=== PATIENT | female | born 1975 | race Caucasian/White ===

== ENCOUNTER → 2018-06-08 14:24 | Outpatient (CLI) | payer BC, SELFPAY ==
--- NOTE | 2018-06-08 14:29 | XR_ITS ---
XR wrist RT min 3V HISTORY ITS.REASON: RIGHT WRIST PAIN ORDERING PHYSICIAN: Shelly Geronimo PATIENT AGE: 43 years Comparison: None FINDINGS: No fracture or dislocation. No lytic or blastic change. There is normal mineralization.. The joint spaces are well-preserved. No significant degenerative/arthritic changes. No erosive changes evident.. IMPRESSION: Negative wrist
== END ==
PROVIDERS: PCP Family Medicine; Visit Provider Nurse Practitioner
DX: M25.531 Pain in right wrist (principal)
CPT/HCPCS: 73110

== ENCOUNTER → 2019-10-12 09:42 | Outpatient (CLI) | payer BC, SELFPAY ==
[2019-10-12 09:47] LABS: Adenovirus F 40/41, stool Not Detected (NotDetected); Astrovirus Not Detected (NotDetected); Campylobacter Not Detected (NotDetected); Clostridium Difficile A/B, PCR Not Detected (NotDetected); Cryptosporidium Not Detected (NotDetected); Cyclospora Cayetanesis Not Detected (NotDetected); Entamoeba histolytica Not Detected (NotDetected); Enteroaggregative E coli Not Detected (NotDetected); Enteropathogenic E coli Not Detected (NotDetected); Enterotoxigenic E coli Not Detected (NotDetected); Giardia lamblia Not Detected (NotDetected); Norovirus Not Detected (NotDetected); Plesimonas Shigalloides, PCR Not Detected (NotDetected); Rotavirus A Not Detected (NotDetected); Salmonella, PCR Not Detected (NotDetected); Sapovirus Not Detected (NotDetected); Shiga-like toxin E coli Not Detected (NotDetected); Shigella Enterovasive E coli Not Detected (NotDetected); Vibrio Cholerae Not Detected (NotDetected); Vibrio, PCR Not Detected (NotDetected); Yersinia Entercolitica, PCR Not Detected (NotDetected)
== END ==
PROVIDERS: Visit Provider Nurse Practitioner
DX: R19.7 Diarrhea, unspecified (principal)
CPT/HCPCS: 87507

== ENCOUNTER → 2019-12-08 13:19 | Outpatient (CLI) | payer BC, SELFPAY ==
[2019-12-08 14:41] LABS: Basophils # 0.1 K/mm3 (0-0.2); Basophils % 1.6 % (0.1-2.0); Eosinophils # 0.2 K/mm3 (0.0-0.4); Eosinophils % 2.6 % (0.1-12.0); Hematocrit 45.6 % (37.0-47.0); Hemoglobin 15.4 g/dL (12.2-16.2); Lymphocytes # 2.5 K/mm3 (0.7-4.5); Lymphocytes % 28.6 % (10-50); Mean Corpuscular HGB Conc 33.9 g/dL (31.8-35.4); Mean Corpuscular Hemoglobin 30.3 pg (27.0-31.2); Mean Corpuscular Volume 89.4 fl (81-99); Mean Platelet Volume 8.2 fl (7.4-10.4); Monocytes # 0.5 K/mm3 (0.1-1.0); Monocytes % 5.1 % (1.7-9.3); Neutrophils # 5.5 K/mm3 (1.8-7.8); Platelet Count 233 K/mm3 (142-424); Red Cell Distribution Width 15.4 % (11.5-17.5); White Blood Count 8.9 K/mm3 (4.8-10.8)
[2019-12-09 14:44] LABS: Covid-19 Nasal PCR Sendout Lex NOT DETECTED
== END ==
PROVIDERS: PCP Family Medicine; Visit Provider Family Medicine
DX: Z03.818 Encounter for observation for suspected exposure to other biological agents ruled out (principal)
CPT/HCPCS: 36415; 85025; U0004

== ENCOUNTER → 2020-03-13 11:28 | Outpatient (CLI) | payer BC, SELFPAY ==
[2020-03-13 13:16] LABS: Basophils # 0.1 K/mm3 (0-0.2); Eosinophils # 0.2 K/mm3 (0.0-0.4); Eosinophils % 2.3 % (0.1-12.0); Hematocrit 47.1 % (37.0-47.0); Hemoglobin 15.8 g/dL (12.2-16.2); Lymphocytes # 2.8 K/mm3 (0.7-4.5); Lymphocytes % 29.1 % (10-50); Mean Corpuscular HGB Conc 33.5 g/dL (31.8-35.4); Mean Corpuscular Hemoglobin 30.5 pg (27.0-31.2); Mean Corpuscular Volume 90.9 fl (81-99); Mean Platelet Volume 8.3 fl (7.4-10.4); Monocytes # 0.5 K/mm3 (0.1-1.0); Monocytes % 5.5 % (1.7-9.3); Neutrophils # 5.9 K/mm3 (1.8-7.8); Neutrophils % 62.2 % (37.0-80.0); Platelet Count 219 K/mm3 (142-424); Red Blood Count 5.18 M/mm3 (4.20-5.40); Red Cell Distribution Width 14.9 % (11.5-17.5); White Blood Count 9.5 K/mm3 (4.8-10.8)
[2020-03-13 13:52] LABS: Strep Scrn Group A (Rapid) Negative (Negative)
[2020-03-14 13:06] LABS: Covid-19 Nasal PCR Sendout Lex NOT DETECTED
== END ==
PROVIDERS: PCP Family Medicine; Visit Provider Nurse Practitioner
DX: Z03.818 Encounter for observation for suspected exposure to other biological agents ruled out (principal)
CPT/HCPCS: 36415; 85025; 87430; U0004

== ENCOUNTER → 2020-06-26 14:50 | Outpatient (CLI) | payer BC, SELFPAY ==
[2020-06-26 15:42] LABS: Basophils # 0.1 K/mm3 (0-0.2); Eosinophils # 0.1 K/mm3 (0.0-0.4); Eosinophils % 1.4 % (0.1-12.0); Hematocrit 46.3 % (37.0-47.0); Hemoglobin 15.4 g/dL (12.2-16.2); Lymphocytes # 2.2 K/mm3 (0.7-4.5); Lymphocytes % 26.7 % (10-50); Mean Corpuscular HGB Conc 33.2 g/dL (31.8-35.4); Mean Corpuscular Volume 90.4 fl (81-99); Mean Platelet Volume 8.1 fl (7.4-10.4); Monocytes # 0.5 K/mm3 (0.1-1.0); Monocytes % 5.9 % (1.7-9.3); Neutrophils # 5.4 K/mm3 (1.8-7.8); Neutrophils % 64.9 % (37.0-80.0); Platelet Count 194 K/mm3 (142-424); Red Blood Count 5.12 M/mm3 (4.20-5.40); Red Cell Distribution Width 15.1 % (11.5-17.5); White Blood Count 8.4 K/mm3 (4.8-10.8)
[2020-06-29 06:19] LABS: Covid-19 Nasal PCR Sendout Lex NOT DETECTED
== END ==
PROVIDERS: PCP Nurse Practitioner; Visit Provider Nurse Practitioner
DX: Z03.818 Encounter for observation for suspected exposure to other biological agents ruled out (principal)
CPT/HCPCS: 36415; 85025; 87275; 87276; U0004

== ENCOUNTER 2020-07-17 22:21 | Emergency (ER) | payer BC, SELFPAY ==
[2020-07-17 22:36] VITALS: BP 144/84; PULSE 82; RESP 15; TEMP 36.7; O2SAT 97; BMI 35.6
--- NOTE | 2020-07-17 22:36 | CT_ITS ---
PROCEDURE: CT ABDOMEN PELVIS WO CON CLINICAL INDICATION: flank pain known kdiney stone Left flank pain, pelvic pain COMPARISON: No exams were available for comparison TECHNIQUE: Axial images obtained with sagittal and coronal reformats. All CT scans at the facility use one or more dose reduction, viz: automated exposure control, ma/kV adjustment per patient size (including targeted exams where dose is matched to indication, i.e. head), or iterative reconstruction technique. FINDINGS: Fatty liver. Prior cholecystectomy. Hepatomegaly. The liver measures 27 cm cephalad caudad. Splenomegaly. The spleen measures 16 cm cephalad caudad. There are nonobstructing bilateral renal calculi. Largest stone is in the lower pole of the right kidney at 9 mm. No ureteral calculi identified. No hydronephrosis. Scattered small nodes are present in the peritoneum and retroperitoneum. No evidence of appendicitis or diverticulitis. Postsurgical changes at abdominal wall. Suture line is present in the mid pelvic region involving the small bowel. Small bowel feces sign is noted which could represent delayed transit. There is mild dilatation of the small bowel at the region of the suture line. No free air apparent. No acute bony finding. IMPRESSION: 1. Hepatosplenomegaly with fatty liver. 2. Nonobstructing bilateral renal calculi. 3. Postsurgical changes of the small bowel with mild dilatation and small bowel feces sign which may be seen with delayed transit or even partial obstruction. Please correlate with clinical findings. Dictated by: Lane Chacon MD 07/18/2020 07:43 Lane Chacon MD in [place] 07/18/2020 07:43
[2020-07-17 22:54] LABS: Microscopic, Urine URINE MICROSCOPIC (MICROSCOPIC)
[2020-07-17 22:54] LABS: Basophils # 0.1 K/mm3 (0-0.2); Basophils % 1.1 % (0.1-2.0); Eosinophils # 0.2 K/mm3 (0.0-0.4); Eosinophils % 1.8 % (0.1-12.0); Hematocrit 46.6 % (37.0-47.0); Hemoglobin 15.5 g/dL (12.2-16.2); Lymphocytes # 2.6 K/mm3 (0.7-4.5); Mean Corpuscular HGB Conc 33.3 g/dL (31.8-35.4); Mean Corpuscular Hemoglobin 29.8 pg (27.0-31.2); Mean Corpuscular Volume 89.4 fl (81-99); Mean Platelet Volume 8.5 fl (7.4-10.4); Monocytes # 0.5 K/mm3 (0.1-1.0); Monocytes % 5.9 % (1.7-9.3); Neutrophils # 5.1 K/mm3 (1.8-7.8); Neutrophils % 60.2 % (37.0-80.0); Platelet Count 202 K/mm3 (142-424); Red Blood Count 5.21 M/mm3 (4.20-5.40); White Blood Count 8.5 K/mm3 (4.8-10.8)
--- NOTE | 2020-07-17 22:54 | PC.NURSE ---
PT TO CT VIA WC
[2020-07-17 22:56] LABS: Appearance,Urine CLEAR (Clear); Bilirubin,Urine Negative (Negative); Blood, Urine TRACE-I (Negative); Color,Urine YELLOW (Yellow); Glucose,Urine (UA) 3+ (Negative); Ketones,Urine Negative (Negative); Leukocyte Esterase,Urine Negative (Negative); Nitrate,Urine Negative (Negative); Protein,Urine Negative (Negative); Specific Gravity, Urine 1.015 (1.005-1.030); Urobilinogen,Urine 0.2 EU/dl (0.2)
[2020-07-17 22:58] LABS: Chloride 104 mmol/L (98-107); Potassium 4.2 mmoL/L (3.5-5.1); Sodium 140 mmol/L (136-145)
[2020-07-17 23:01] LABS: Anion Gap 13.2 mEq/L (5-15); Blood Urea Nitrogen 11 mg/dl (7-17); Carbon Dioxide 27 mmol/L (22.0-30.0); Creatinine Clearance Estimated 156 mL/min (50-200); Estimated Glomerular Filt Rate 78 ml/min (>60); GFR (African American) 94 ML/MIN (>60)
[2020-07-17 23:02] LABS: Calcium 9.9 mg/dl (8.4-10.2); Glucose 240 mg/dl (74-100)
[2020-07-17 23:17] LABS: Bacteria,Urine 1+ /lpf
[2020-07-17 23:22] VITALS: BP 139/87; PULSE 80; RESP 15; O2SAT 96
--- NOTE | 2020-07-17 23:43 | HMH.EDGENADL ---
ED Disposition Clinical Impression: Urinary tract infection Qualifiers: Urinary tract infection type: acute cystitis Hematuria presence: without hematuria Qualified Code(s): N30.00 - Acute cystitis without hematuria Disposition: Home, Self-Care Condition on Discharge: Good Instructions: DI for Urinary Tract Infection (UTI) Prescriptions: Sulfamethoxazole/Trimethoprim [Bactrim DS tablet] 1 each PO BID 5 Days #10 tab Prescription Printed Referrals: Pablo Lebron MD [Primary Care Provider] - - Critical Care Critical Care Time: No Attestation: On 07/17/20, the high probability of a clinically significant, sudden or life threatening deterioration of the following system(s) required my full and direct attention, intervention and personal management. The time I documented below is in addition to time spent performing reported procedures but includes the following listed in this critical care notation. Medical Decision Making - Aadm Inquiry Pt receiving controlled substance: No Vital Signs: 07/17/20 22:36 07/17/20 23:22 07/18/20 00:16 Temperature 98.0 F 98 F Temperature Source Oral Oral Pulse Rate 75 Pulse Rate [Right Brachial] 82 80 Respiratory Rate 15 15 16 Blood Pressure 125/75 Blood Pressure [Right Arm] 144/84 H 139/87 Blood Pressure Mean [Right Arm] 104 104 Blood Pressure Source Automatic Cuff Blood Pressure Source [Right Arm] Automatic Cuff Automatic Cuff Blood Pressure Position Sitting Blood Pressure Position [Right Arm] Sitting Sitting 02 Sat by Pulse Oximetry 97 96 Oxygen Delivery Method Room Air Room Air Room Air - Lab Data Lab Results 07/17/20 22:45: WBC 8.5, RBC 5.21, Hgb 15.5, Hct 46.6, MCV 89.4, MCH 29.8, MCHC 33.3, RDW 16.0, Plt Count 202, MPV 8.5, Neut % (Auto) 60.2, Lymph % (Auto) 31.0, Brule % (Auto) 5.9, Eos % (Auto) 1.8, Baso % (Auto) 1.1, Neut # (Auto) 5.1, Lymph # (Auto) 2.6, Brule # (Auto) 0.5, Eos # (Auto) 0.2, Baso # (Auto) 0.1 07/17/20 22:45: Sodium 140, Potassium 4.2, Chloride 104, Carbon Dioxide 27, Anion Gap 13.2, BUN 11, Creatinine 0.80, Estimated Creat Clear 156, Estimated GFR 78, Est GFR ( Amer) 94, Glucose 240 H, Calcium 9.9 07/17/20 22:50: Urine Color Yellow, Urine Appearance Clear, Urine pH 6.0, Ur Specific Warren 1.015, Urine Protein Negative, Urine Glucose (UA) 3+, Urine Ketones Negative, Urine Blood Trace-i, Urine Nitrate Negative, Urine Bilirubin Negative, Urine Urobilinogen 0.2, Ur Leukocyte Esterase Negative, Urine WBC 3-5, Ur Squamous Epith Cells 5-10, Urine Bacteria 1+ Result diagrams: 07/17/20 22:45 07/17/20 22:45 Orders (Tests/Meds): ED MEDICATIONS Discontinued Medications Generic Name Dose Route Start Last Admin Trade Name Julitoq PRN Reason Stop Dose Admin Lactated Ringer's 1,000 mls @ 999 mls/hr 07/17/20 22:45 07/17/20 22:53 Lactated Ringer's 1000 Ml Bag IV 07/17/20 23:45 999 mls/hr .Q1H1M ANGELITO Administration Ketorolac Tromethamine 30 mg 07/17/20 22:37 07/17/20 22:54 Ketorolac 30mg/Ml Vial IV 07/17/20 22:38 30 mg ONCE ONE Administration Ondansetron HCl 4 mg 07/17/20 22:38 07/17/20 22:53 Ondansetron 4mg/2ml Vial IV 07/17/20 22:39 4 mg ONCE ONE Administration Trimethoprim/Sulfamethoxazole 1 each 07/17/20 23:40 07/18/20 00:18 Sulfa/Trimethoprim 1 Tablet PO 07/17/20 23:41 1 each ONCE ONE Administration Protocol ORDERS Category Date Time Status CT abdomen pelvis wo con Stat Cat Scan 07/17/20 22:36 Taken Medical Decision Narrative: The patient is a 45 year old female who presents with lower abdominal pain and urinary frequency. She has mild lower abdominal pain on exam. UA shows bacteria and WBC. CT abdomen without contrast shows no stone. Labs otherwise unremarkable. She was given 30 mg IV toradol and 4 mg zofran as well as 1L IVF with improvement in symptoms. Likely has UTI. Will discharge home on bactrim DS PO and give return precautions. General Adult HPI
[2020-07-18 00:16] VITALS: BP 125/75; PULSE 75; RESP 16; TEMP 36.6; O2SAT 98
== END 2020-07-18 00:18 | disposition home or self-care (01) ==
PROVIDERS: Emergency Provider Emergency Medicine; PCP Family Medicine
DX: N30.00 Acute cystitis without hematuria (principal); I25.10 Atherosclerotic heart disease of native coronary artery without angina pectoris; I25.2 Old myocardial infarction; Z79.899 Other long term (current) drug therapy
CPT/HCPCS: 74176; 80048; 81001; 85025; 96365; 96375; 99283; J2405

== ENCOUNTER 2020-07-22 13:03 | Emergency (ER) | payer BC, SELFPAY ==
[2020-07-22 13:55] VITALS: BP 114/78; PULSE 116; RESP 18; TEMP 36.8; O2SAT 98; BMI 35.4
--- NOTE | 2020-07-22 14:12 | HMH.EDUTC ---
[facility] [place] Disposition Clinical Impression: Exposure to COVID-19 virus, Viral upper respiratory illness Disposition: Home, Self-Care Condition on Discharge: Good Instructions: DI for COVID-19 (Suspected or Confirmed ), Coronavirus Disease 2019, Preventing the Spread of Coronavirus Discharge Instructions Additional Instructions: *Monitor Temp, Over the counter Motrin or Tylenol as directed/as needed Tylenol every 4 hours and Motrin every 6 hours (as long as your family doctor has told you that you can take it) for fever or pain. and straight to ER if unable to lower temp less than 101.0 after medication given *Warm salt water gargles may help to soothe the throat *Throat Lozenges *Warm fluids like tea with honey may help to soothe the throat *Sleep elevated *Humidifier/Vaporizer *Flonase 2 sprays in each nostril daily but be aware that it may take 2-3 days before you notice improvement *Bromfed may cause drowsiness. Know how it effects you (your child) before driving, caring for small child, or sending your child to school. Not other antihistamines/allergy medications while taking bromfed Your throat swab was sent for culture. Those results are typically sent to your primary care. Be sure to follow up in 2-3 days with your family doctor/primary care physician if no improvement so they can review those result and treat if necessary. If you don?t have a primary care doctor, I recommend you get one but in the mean time, you will have to return to a walk in clinic Follow up IMMEDIATELY for new or worsening symptoms or no Noticeable improvement over the next 48-72 hours. 911 for difficulty breathing or swallowing You were tested for today for COVID19 your test result should be back in the next 24-48 hours, you may call to the [facility] to see if your test results are back in the next 48 hours [phone] [facility] hours are 9am-9pm You was given a handout with instructions for Self Quarantine and Self isolation for while you wait on test results and what to do if they are positive If you are positive the Health Dept will be contacting you also Referrals: Pablo Lebron MD [Primary Care Provider] - As needed Time of Disposition: 14:39 Medical Decision Making - Adam Inquiry Pt receiving controlled substance: No Adam was queried for this patient: No Vital Signs: 07/22/20 13:55 Temperature 98.2 F Temperature Source Oral Pulse Rate [Right Brachial] 116 H Respiratory Rate 18 Blood Pressure [Right Arm] 114/78 Blood Pressure Mean [Right Arm] 90 Blood Pressure Source [Right Arm] Automatic Cuff Blood Pressure Position [Right Arm] Sitting 02 Sat by Pulse Oximetry 98 Oxygen Delivery Method Room Air Orders (Tests/Meds): ORDERS Category Date Time Status Covid-19 Nasal PCR ([facility]) Routine Lab 07/22/20 13:58 Received [facility] [place] HPI - General Stated complaint: Fever, sore throat, cough Time Seen by Provider: 07/22/20 14:12 Mode of Arrival: Ambulatory Source of Information: Patient Limitations: No Limitations Description of Symptoms (Recalled from Triage Doc. by RN): PATIENT C/O FEVER, SORE THROAT, AND EAR ACHE SINCE LAST NIGHT. SON TESTED POSITIVE FOR COVID YESTERDAY HEENT Symptoms (Recalled from RN notes): Yes Resp Symptoms (Recalled from RN notes): No Skin Symptoms (Recalled from RN notes): No MS Symptoms (Recalled from RN notes): No Functional Status (Recalled from RN notes): WNL - History of Present Illness Provider Complaint: Patient states that she has been around son that just tested positive for COVID States that she is currently on medication for bladder infection State thats she has been having sore throat, body aches and chills and today is her last dose of antibiotic and she wanted to get her urine rechecked and tested for COVID - Related Data Home Medications Medication Instructions Recorded Confirmed Aspirin [Aspirin 81mg chewable 81 mg PO DAILY 10/24/17 10/24/17 tab] Atorvastatin Calcium [Lipitor 20mg
[2020-07-22 14:46] VITALS: BP 114/78; PULSE 116; RESP 18; TEMP 36.8; O2SAT 98
[2020-07-22 20:17] LABS: Apearance,Urine Clear (Clear); Color,Urine Amber (Yellow); Glucose,Urine (UA) >=1000 (Negative); Ketones,Urine 15 (Negative); Protein,Urine Negative (Negative); Specific Gravity, Urine 1.015 (1.005-1.030)
[2020-07-22 20:18] LABS: Bilirubin,Urine 1+ (Negative); Blood, Urine Negative (Negative); UTC Leukocyte Esterase,Urine Negative (Negative); UTC Nitrate,Urine Negative (Negative); Urobilinogen,Urine 4 EU/dl (0.2)
== END 2020-07-22 14:50 | disposition home or self-care (01) ==
PROVIDERS: Emergency Provider Nurse Practitioner; PCP Family Medicine
DX: Z20.822 Contact with and (suspected) exposure to COVID-19 (principal); J06.9 Acute upper respiratory infection, unspecified; I25.10 Atherosclerotic heart disease of native coronary artery without angina pectoris; E11.9 Type 2 diabetes mellitus without complications; I25.2 Old myocardial infarction; Z79.899 Other long term (current) drug therapy
CPT/HCPCS: 81003; 99202; G0463; U0003

== ENCOUNTER 2020-11-11 15:43 | Emergency (ER) | payer BC, SELFPAY ==
[2020-11-11 15:50] VITALS: BP 138/89; PULSE 93; RESP 16; TEMP 36.6; O2SAT 98; BMI 34.8
--- NOTE | 2020-11-11 16:48 | HMH.EDUTC ---
[facility] [place] Clinical Impression: Otitis media Qualifiers: Otitis media type: unspecified Laterality: left Qualified Code(s): H66.92 - Otitis media, unspecified, left ear Disposition: Home, Self-Care Condition on Discharge: Good Instructions: Middle Ear Infection, Meclizine, Amoxicillin Additional Instructions: *Monitor Temp, Over the counter Motrin or Tylenol as directed/as needed Tylenol every 4 hours and Motrin every 6 hours (as long as your family doctor has told you that you can take it) for fever or pain. and straight to ER if unable to lower temp less than 101.0 after medication given *Take medications as prescribed *Sleep elevated *Humidifier/Vaporizer *Flonase as prescribed Follow up IMMEDIATELY for new or worsening symptoms or no Noticeable improvement over the next 48-72 hours. 911 for difficulty breathing or swallowing Prescriptions: Meclizine HCl [Antivert 12.5mg tablet] 12.5 mg PO Q8HP PRN #6 tab PRN Reason: Dizziness Transmission Status: Received by [id number] Amoxicillin [Amoxicillin 875MG Tab] 875 mg PO Q12H #20 tab Transmission Status: Received by [id number] Referrals: Pablo Lebron MD [Primary Care Provider] - As needed Time of Disposition: 17:08 Medical Decision Making - Adam Inquiry Pt receiving controlled substance: No Adam was queried for this patient: No Vital Signs: 11/11/20 15:50 11/11/20 17:03 Temperature 97.8 F 97.8 F Temperature Source Oral Pulse Rate 93 H Pulse Rate [Right Brachial] 93 H Respiratory Rate 16 16 Blood Pressure 138/89 Blood Pressure [Right Arm] 138/89 Blood Pressure Mean [Right Arm] 105 Blood Pressure Source [Right Arm] Automatic Cuff Blood Pressure Position [Right Arm] Sitting 02 Sat by Pulse Oximetry 98 Oxygen Delivery Method Room Air Medical Decision Narrative: Patient educated on medication [facility] [place] HPI - General Stated complaint: possible sinus and ear infection Time Seen by Provider: 11/11/20 16:54 Mode of Arrival: Ambulatory Source of Information: Patient Limitations: No Limitations Description of Symptoms (Recalled from Triage Doc. by RN): PATIENT C/O DIZZINESS SINCE YESTERDAY. SHE STATES SHE BELIEVES THAT IT IS EITHER A SINUS OR EAR INFECTION HEENT Symptoms (Recalled from RN notes): Yes Resp Symptoms (Recalled from RN notes): No Skin Symptoms (Recalled from RN notes): No MS Symptoms (Recalled from RN notes): No Functional Status (Recalled from RN notes): WNL - History of Present Illness Provider Complaint: Patient states that she has been having pain in her left ear for several days and noticed that yesterday she would feel a little dizzy when she would make sudden movements States that today she was still feeling a little dizzy and still having pain and pressure in her ears and sinus area so she came in to get checked - Related Data Home Medications Medication Instructions Recorded Confirmed Aspirin [Aspirin 81mg chewable 81 mg PO DAILY 10/24/17 10/24/17 tab] Atorvastatin Calcium [Lipitor 20mg 0 mg PO DAILY 10/24/17 10/24/17 Tablet] Escitalopram Oxalate 10 mg PO DAILY 10/24/17 10/24/17 Furosemide [Lasix 40mg tab] 40 mg PO DAILY 10/24/17 10/24/17 Gabapentin [Neurontin 600mg 600 mg PO BID 10/24/17 10/24/17 tablet] LORazepam [Ativan 1mg tablet] 0 mg PO NEEDED PRN 10/24/17 10/24/17 Levothyroxine Sodium 200 mcg PO DAILY 10/24/17 10/24/17 [Levothyroxine 200mcg (0.2mg) Tab] Multivitamin [Multi-Day Vitamins] 1 each PO DAILY 10/24/17 10/24/17 Nitroglycerin 0.4 mg SL NEEDED PRN 10/24/17 10/24/17 Vit D3/Folic Acid/B2/B6/B12 1 each PO DAILY 10/24/17 10/24/17 [Folgard Tablet] Vit E/B1/B6/FA/B12/Ala/Coq10 1 each PO DAILY 10/24/17 10/24/17 [Fibrik Capsule] carvediloL [Coreg 6.25mg 6.25 mg PO DAILY 10/24/17 10/24/17 Tablet] cetirizine 10 mg capsule 10 mg PO DAILY 12/15/18 empagliflozin 10 mg tablet 10 mg PO DAILY 12/15/18 fluticasone propionate
[2020-11-11 17:03] VITALS: BP 138/89; PULSE 93; RESP 16; TEMP 36.6; O2SAT 98
== END 2020-11-11 17:06 | disposition home or self-care (01) ==
PROVIDERS: Emergency Provider Nurse Practitioner; PCP Family Medicine
DX: H66.92 Otitis media, unspecified, left ear (principal); I25.10 Atherosclerotic heart disease of native coronary artery without angina pectoris; E11.9 Type 2 diabetes mellitus without complications; I25.2 Old myocardial infarction; Z79.899 Other long term (current) drug therapy
CPT/HCPCS: 99202; G0463

== ENCOUNTER → 2021-04-23 15:55 | Outpatient (CLI) | payer BC, SELFPAY ==
[2021-04-23 16:57] LABS: Basophils # 0.1 K/mm3 (0-0.2); Basophils % 1.3 % (0.1-2.0); Eosinophils # 0.2 K/mm3 (0.0-0.4); Eosinophils % 2.3 % (0.1-12.0); Hematocrit 44.5 % (37.0-47.0); Hemoglobin 14.9 g/dL (12.2-16.2); Lymphocytes # 2.6 K/mm3 (0.7-4.5); Lymphocytes % 28.7 % (10-50); Mean Corpuscular HGB Conc 33.5 g/dL (31.8-35.4); Mean Corpuscular Hemoglobin 29.8 pg (27.0-31.2); Mean Corpuscular Volume 89.2 fl (81-99); Mean Platelet Volume 8.4 fl (7.4-10.4); Monocytes # 0.5 K/mm3 (0.1-1.0); Monocytes % 5.7 % (1.7-9.3); Neutrophils # 5.5 K/mm3 (1.8-7.8); Platelet Count 217 K/mm3 (142-424); Red Blood Count 4.99 M/mm3 (4.20-5.40); Red Cell Distribution Width 15.6 % (11.5-17.5); White Blood Count 8.9 K/mm3 (4.8-10.8)
[2021-04-23 19:02] LABS: Strep Scrn Group A (Rapid) Negative (Negative)
== END ==
PROVIDERS: PCP Family Medicine; Visit Provider Nurse Practitioner
DX: Z20.822 Contact with and (suspected) exposure to COVID-19 (principal)
CPT/HCPCS: 36415; 85025; 87430; C9803; U0003; U0005

== ENCOUNTER → 2021-04-26 13:11 | Outpatient (CLI) | payer BC, SELFPAY ==
[2021-04-26 14:17] LABS: Adenovirus,PCR Not Detected (NotDetected); Bordetella Pertussis Not Detected (NotDetected); Chlamydophila Pneumoniae, PCR Not Detected (NotDetected); Coronavirus 19, PCR Not Detected (NotDetected); Coronavirus 229E Not Detected (NotDetected); Coronavirus NL63 Not Detected (NotDetected); Coronavirus OC43 Not Detected (NotDetected); Coronovirus HKU1,PCR Not Detected (NotDetected); Human Metapneumovirus Not Detected (NotDetected); Influenza A, PCR Not Detected (NotDetected); Influenza AH1, 2009 Not Detected (NotDetected); Influenza AH1, PCR Not Detected (NotDetected); Influenza AH3,PCR Not Detected (NotDetected); Influenza B, PCR Not Detected (NotDetected); Mycoplasma Pneumoniae, PCR Not Detected (NotDetected); Parainfluenza 1, PCR Not Detected (NotDetected); Parainfluenza 2, PCR Not Detected (NotDetected); Parainfluenza 3, PCR Not Detected (NotDetected); Parainfluenza 4, PCR Not Detected (NotDetected); Respiratory Syncytial Virus Not Detected (NotDetected); Rhinovirus/Enterovirus Not Detected (NotDetected)
[2021-04-26 14:39] LABS: Basophils # 0.1 K/mm3 (0-0.2); Basophils % 0.9 % (0.1-2.0); Eosinophils # 0.2 K/mm3 (0.0-0.4); Eosinophils % 1.8 % (0.1-12.0); Hematocrit 47.6 % (37.0-47.0); Hemoglobin 15.6 g/dL (12.2-16.2); Lymphocytes # 2.5 K/mm3 (0.7-4.5); Lymphocytes % 27.3 % (10-50); Mean Corpuscular HGB Conc 32.8 g/dL (31.8-35.4); Mean Corpuscular Hemoglobin 30.1 pg (27.0-31.2); Mean Corpuscular Volume 91.8 fl (81-99); Mean Platelet Volume 8.5 fl (7.4-10.4); Monocytes # 0.5 K/mm3 (0.1-1.0); Monocytes % 5.7 % (1.7-9.3); Neutrophils # 5.8 K/mm3 (1.8-7.8); Neutrophils % 64.3 % (37.0-80.0); Platelet Count 226 K/mm3 (142-424); Red Blood Count 5.18 M/mm3 (4.20-5.40); Red Cell Distribution Width 15.7 % (11.5-17.5); White Blood Count 9.1 K/mm3 (4.8-10.8)
== END ==
PROVIDERS: PCP Nurse Practitioner; Visit Provider Nurse Practitioner
DX: Z20.822 Contact with and (suspected) exposure to COVID-19 (principal)
CPT/HCPCS: 36415; 85025; 87581; 87632; 87798; C9803; U0003; U0005

== ENCOUNTER → 2021-10-31 14:40 | Outpatient (CLI) | payer BC, SELFPAY ==
[2021-10-31 14:45] LABS: Adenovirus F 40/41, stool Not Detected (NotDetected); Astrovirus Not Detected (NotDetected); Campylobacter Not Detected (NotDetected); Clostridium Difficile A/B, PCR Not Detected (NotDetected); Cryptosporidium Not Detected (NotDetected); Cyclospora Cayetanesis Not Detected (NotDetected); Entamoeba histolytica Not Detected (NotDetected); Enteroaggregative E coli Not Detected (NotDetected); Enteropathogenic E coli Not Detected (NotDetected); Enterotoxigenic E coli Not Detected (NotDetected); Giardia lamblia Not Detected (NotDetected); Norovirus Not Detected (NotDetected); Plesimonas Shigalloides, PCR Not Detected (NotDetected); Salmonella, PCR Not Detected (NotDetected); Sapovirus Not Detected (NotDetected); Shiga-like toxin E coli Not Detected (NotDetected); Shigella Enterovasive E coli Not Detected (NotDetected); Vibrio Cholerae Not Detected (NotDetected); Vibrio, PCR Not Detected (NotDetected); Yersinia Entercolitica, PCR Not Detected (NotDetected)
[2021-11-01 01:27] LABS: Rotavirus A Detected (NotDetected)
== END ==
PROVIDERS: Visit Provider Family Medicine
DX: R19.7 Diarrhea, unspecified (principal); A08.0 Rotaviral enteritis
CPT/HCPCS: 87507

== ENCOUNTER 2021-12-13 19:12 | Emergency (ER) | payer BC, SELFPAY ==
[2021-12-13 19:20] VITALS: BP 148/95; PULSE 96; RESP 18; TEMP 36.6; O2SAT 98; BMI 32.5
--- NOTE | 2021-12-13 20:12 | HMH.EDUTC ---
[facility] [place] Disposition Clinical Impression: Otitis media Qualifiers: Otitis media type: unspecified Laterality: bilateral Qualified Code(s): H66.93 - Otitis media, unspecified, bilateral Disposition: Home, Self-Care Condition on Discharge: Good Instructions: Middle Ear Infection, Amoxicillin Additional Instructions: *Monitor Temp, Over the counter Motrin or Tylenol as directed/as needed Tylenol every 4 hours and Motrin every 6 hours (as long as your family doctor has told you that you can take it) for fever or pain. and straight to ER if unable to lower temp less than 101.0 after medication given *Warm salt water gargles may help to soothe the throat *Throat Lozenges *Warm fluids like tea with honey may help to soothe the throat *Sleep elevated *Humidifier/Vaporizer Take medication as prescribed Follow up IMMEDIATELY for new or worsening symptoms or no Noticeable improvement over the next 48-72 hours. 911 for difficulty breathing or swallowing Prescriptions: Amoxicillin [Amoxicillin 500mg Cap] 500 mg PO TID #30 cap Transmission Status: [id number] Referrals: Shelly Geronimo APRN [Primary Care Provider] - As needed Time of Disposition: 20:21 Medical Decision Making - Adam Inquiry Pt receiving controlled substance: No Adam was queried for this patient: No Vital Signs: 12/13/21 19:20 Temperature 97.9 F Temperature Source Oral Pulse Rate [Right Brachial] 96 H Respiratory Rate 18 Blood Pressure [Right Arm] 148/95 H Blood Pressure Mean [Right Arm] 112 Blood Pressure Source [Right Arm] Automatic Cuff Blood Pressure Position [Right Arm] Sitting 02 Sat by Pulse Oximetry 98 Oxygen Delivery Method Room Air [facility] [place] HPI - General Stated complaint: sore throat, ear pain Time Seen by Provider: 12/13/21 20:12 Mode of Arrival: Ambulatory Source of Information: Patient Limitations: No Limitations Description of Symptoms (Recalled from Triage Doc. by RN): PATIENT C/O BILATERAL EAR AND THROAT PAIN X 1 WEEK HEENT Symptoms (Recalled from RN notes): Yes Resp Symptoms (Recalled from RN notes): No Skin Symptoms (Recalled from RN notes): No MS Symptoms (Recalled from RN notes): No Functional Status (Recalled from RN notes): WNL - History of Present Illness Provider Complaint: Patient states that she has not felt well for about a week States that she is having bilateral ear pain and sore throat States that today she was still feeling bad and ears was hurting worse so she came in to get checked - Related Data Home Medications Medication Instructions Recorded Confirmed Aspirin [Aspirin 81mg chewable 81 mg PO DAILY 10/24/17 10/24/17 tab] Atorvastatin Calcium [Lipitor 20mg 0 mg PO DAILY 10/24/17 10/24/17 Tablet] Escitalopram Oxalate 10 mg PO DAILY 10/24/17 10/24/17 Furosemide [Lasix 40mg tab] 40 mg PO DAILY 10/24/17 10/24/17 Gabapentin [Neurontin 600mg 600 mg PO BID 10/24/17 10/24/17 tablet] LORazepam [Ativan 1mg tablet] 0 mg PO NEEDED PRN 10/24/17 10/24/17 Levothyroxine Sodium 200 mcg PO DAILY 10/24/17 10/24/17 [Levothyroxine 200mcg (0.2mg) Tab] Multivitamin [Multi-Day Vitamins] 1 each PO DAILY 10/24/17 10/24/17 Nitroglycerin 0.4 mg SL NEEDED PRN 10/24/17 10/24/17 Vit D3/Folic Acid/B2/B6/B12 1 each PO DAILY 10/24/17 10/24/17 [Folgard Tablet] Vit E/B1/B6/FA/B12/Ala/Coq10 1 each PO DAILY 10/24/17 10/24/17 [Fibrik Capsule] carvediloL [Coreg 6.25mg 6.25 mg PO DAILY 10/24/17 10/24/17 Tablet] cetirizine 10 mg capsule 10 mg PO DAILY 12/15/18 empagliflozin 10 mg tablet 10 mg PO DAILY 12/15/18 fluticasone propionate 50 1 spray INTRANASAL DAILY 12/15/18 mcg/actuation nasal spray,suspension pantoprazole 40 mg tablet,delayed 40 mg PO BID 12/15/18 release albuterol sulfate 90 mcg/actuation 2 puff INHALATION QID 05/26/19 aerosol inhaler Previous Rx's Medication Instructions Recorded amoxicillin 875 mg-potassium 1 tab PO BID 10 Days #20
[2021-12-13 20:22] VITALS: BP 148/95; PULSE 96; RESP 18; TEMP 36.6; O2SAT 98
== END 2021-12-13 20:27 | disposition home or self-care (01) ==
PROVIDERS: Emergency Provider Nurse Practitioner; PCP Nurse Practitioner
DX: H66.93 Otitis media, unspecified, bilateral (principal)
CPT/HCPCS: 99212; G0463

== ENCOUNTER 2024-03-22 08:34 | Emergency (ER) | payer BC, SELFPAY ==
[2024-03-22 08:50] VITALS: BP 117/73; PULSE 96; RESP 20; TEMP 36.6; O2SAT 96; BMI 29.5
[2024-03-22 09:08] LABS: Apearance,Urine Cloudy (Clear); Color,Urine Red (Yellow)
[2024-03-22 09:09] LABS: PH,Urine 5.5 (5.0-8.5)
[2024-03-22 09:11] LABS: Protein,Urine Negative (Negative); Specific Gravity, Urine 1.025 (1.005-1.030)
[2024-03-22 09:13] LABS: Glucose,Urine (UA) >1000 (Negative)
[2024-03-22 09:14] LABS: Bilirubin,Urine Negative (Negative); Blood, Urine 3+ (Negative); Ketones,Urine Negative (Negative); UTC Leukocyte Esterase,Urine Trace (Negative); Urobilinogen,Urine 0.2 EU/dl (0.2)
--- NOTE | 2024-03-22 09:14 | EXP.UTC ---
Discharge Plan Disposition Patient Disposition: Home, Self-Care Condition: Good Prescriptions Prescriptions: New nitrofurantoin monohyd/m-cryst [Macrobid] 100 mg capsule 100 mg PO Q12H 7 Days Qty: 14 0RF Rx Instructions: must administer with a meal/food phenazopyridine [Pyridium] 200 mg tablet 200 mg PO Q8H 2 Days Qty: 6 0RF No Action Jardiance 10 mg tablet 10 mg PO DAILY pantoprazole [Protonix] 40 mg tablet,delayed release (DR/EC) 40 mg PO BID montelukast 10 mg tablet 10 mg PO DAILY Qty: 30 2RF duloxetine 60 mg capsule,delayed release(DR/EC) 60 mg PO DAILY Qty: 30 2RF levothyroxine 175 mcg tablet 175 mcg PO DAILY Qty: 30 2RF gabapentin 600 mg tablet 600 mg PO TID furosemide 40 MG tablet 40 mg PO DAILY carvedilol 6.25 MG tablet 6.25 mg PO DAILY Repatha SureClick 140 mg/mL pen injector 140 mg SQ WEEKLY Ozempic 2 mg/dose (8 mg/3 mL) pen injector 2 mg SQ WEEKLY Patient Comments: INJECT 2 MG UNDER THE SKIN ONCE WEEKLY. trazodone 50 mg tablet 50 mg PO DAILY losartan 25 mg tablet 25 mg PO DAILY Referrals Follow up/Referrals: Arlin Roman APRN [Primary Care Provider] - See instructions Activity Restrictions/Add. Instructions Additional Instructions/Restrictions: *Increase fluids. Water not Soda or Tea *Start antibiotic immediately and be sure to take as ordered for the FULL length of time although you should start to see improvement over the next 48 hours *Pyridium as needed Remember this medication will turn your urine . This is normal but it will stain what ever it gets on *You should not use Pyridium for more than 48 hours. If so , follow up with your primary physician to review urine culture and ensure that antibiotic is adequate for infection *Be SURE to follow up anytime for new or worsening symptoms with your family doctor. AND in 48 hours for urine culture results with your family doctor, if you do not have a doctor then you may call back to the [facility] for urine culture results and further treatment. We do recommend that you choose and establish care with a Primary Care Physician. ?AND follow up with them ?in 10-14 days to repeat UA to ensure infection is resolved and blood no longer present *Be sure to let your PCP know that we sent urine cultures from the [facility] so they can follow up to ensure that you area the on the correct antibiotic Call your doctor office and make appointment for 48 hours (2 days from today) ?to follow up and get the results of your urine culture and further treatment Clinical Impressions Clinical Impression: Urinary tract infection Instructions Patient Instructions: DI for Urinary Tract Infection (UTI), Urinary Tract Infection Print Language Print Language: [place] Discharge ED Provider: Sonia Butterfield [facility] [place] [facility] [place] General Stated complaint: Pain/frequent urination Mode of Arrival: Ambulatory Source of Information: Patient Limitations: No Limitations Time Seen by Provider: 03/22/24 09:19 Description of Symptoms (Recalled from Triage Doc. by RN): PATIENT C/O BURNING, FREQUENCY, AND BLOOD WITH URINATION X 2 DAYS HEENT Symptoms (Recalled from RN notes): No Resp Symptoms (Recalled from RN notes): No Skin Symptoms (Recalled from RN notes): No MS Symptoms (Recalled from RN notes): No Functional Status (Recalled from RN notes): WNL History of Present Illness Provider Complaint: Patient states that she has been having burning with urination and feeling of urgency and frequency, states that she has been having achy like feeling in her back and noticed her urine looked a little pink like it may have some blood in so she came in to get checked Denies hx of kidney stones Related Data Home Medications ?Medication ?Instructions ?Recorded ?Confirmed carvedilol 6.25 mg tablet 6.25 mg PO DAILY Heart disease 10/24/17 03/22/24 furosemide 40 mg tablet 40 mg PO DAILY Fluid 10/24/17 03/22/24 empagliflozin 10 mg tablet 10 mg PO DAILY 12/15/18 03/22/24 (Jardiance) pantoprazole 40 mg tablet,delayed 40 mg PO BID 12/15/18 03/22/24 release (Protonix) gabapentin 600 mg tablet 600 mg PO TID 03/06/22 03/22/24 evolocumab 140 mg/mL subcutaneous 140 mg SQ WEEKLY 03/22/24 03/22/24 pen injector (Repatha SureClick) losartan 25 mg tablet 25 mg PO DAILY 03/22/24 03/22/24 semaglutide 2 mg/dose (8 mg/3 mL) 2 mg SQ WEEKLY 03/22/24 03/22/24 subcutaneous pen injector (Ozempic) trazodone 50 mg tablet 50 mg PO DAILY 03/22/24 03/22/24 Previous Rx's ?Medication ?Instructions ?Recorded duloxetine 60 mg capsule,delayed 60 mg PO DAILY #30 caps 02/27/22 release montelukast 10 mg tablet 10 mg PO DAILY #30 tabs 02/27/22 levothyroxine 175 mcg tablet 175 mcg PO DAILY THYROID #30 tabs 03/01/22 nitrofurantoin 100 mg PO Q12H 7 days #14 caps 03/22/24 monohydrate/macrocrystals 100 mg capsule (Macrobid) phenazopyridine 200 mg tablet 200 mg PO Q8H pain 2 days #6 tabs 03/22/24 (Pyridium) Allergies Allergy/AdvReac Type Severity Reaction Status Date / Time DYLAN Inhibitors Allergy Intermediate Nausea Verified 03/22/24 09:11 Sutures Allergy Rash Verified 03/22/24 09:11 dulaglutide [From Trulicity] AdvReac Intermediate Vomiting Verified 03/22/24 09:11 Worker's Comp Is this a Worker's Comp case?: No [facility] Disclaimer: The information contained in this section may have been updated after the patient was seen, as this information can be updated by other users. Medical History (Updated 03/22/24 @ 09:27 by Sonia Butterfield APRN) Thyroid disease Diabetes mellitus, type 2 History of heart attack Hyperlipidemia Surgical History (Updated 03/22/24 @ 09:12 by Shelby Lara RN) History of tonsillectomy History of hysterectomy History of cholecystectomy History of section Social History Smoking Status: Never smoker alcohol intake: never substance use type: denies use current occupational status: other Travel in the last 8 weeks: None household members: family housing: house ROS Obtained: Yes All systems reviewed & no additional complaints except as documented and Yes Systems reviewed as appropriate & no additional complaints except as documented Constitutional Constitutional: Reports system reviewed and no additional complaints, except as documented, Reports as per HPI, Denies body ache, Denies chills and Denies fever(s) ENT Ears, Nose, Mouth, and Throat: Reports system reviewed and no additional complaints, except as documented and Reports as per HPI Cardiovascular Cardiovascular: Reports system reviewed and no additional complaints, except as documented and Reports as per HPI Gastrointestinal Gastrointestingal: Reports system reviewed and no additional complaints, except as documented and as per HPI; Denies abdominal pain, diarrhea, nausea or vomiting Genitourinary Female Genitourinary: Reports system reviewed and no additional complaints, except as documented, Reports as per HPI, Reports dysuria, Reports urinary frequency and Reports urinary urgency Musculoskeletal Musculoskeletal: Reports system reviewed and no additional complaints, except as documented and Reports as per HPI Integumentary/Breasts Skin/Breast: Reports system reviewed and no additional complaints, except as documented and Reports as per HPI Physical Exam General General appearance: alert and in no apparent distress ENT ENT exam: Present mucous membranes moist Respiratory Respiratory exam: Present normal lung sounds bilaterally; Absent respiratory distress or wheezes Cardiovascular Cardiovascular exam: Present regular rate, normal rhythm and normal heart sounds Abdominal Exam Abdominal exam: Present soft and normal bowel sounds; Absent distention or tenderness Neurological Exam Neurological exam: Present alert, oriented X3 and normal gait Medical Decision Making Adam Inquiry Pt receiving controlled substance: No Adam was queried for this patient: No Vital Signs: 03/22/24 08:50 Temperature 97.8 F Temperature Source Oral Pulse Rate [Left Brachial] 96 H Respiratory Rate 20 Blood Pressure [Left Arm] 117/73 Blood Pressure Mean [Left Arm] 87 Blood Pressure Source [Left Arm] Automatic Cuff Blood Pressure Position [Left Arm] Sitting 02 Sat by Pulse Oximetry 96 Oxygen Delivery Method Room Air Lab Data Lab results reviewed: Yes I reviewed the patient's lab results. Orders (Tests/Meds): ORDERS Category Date Time Status Urine Culture Stat Micro 03/22/24 08:53 Received
[2024-03-22 09:15] LABS: UTC Nitrate,Urine Negative (Negative)
[2024-03-22 09:25] VITALS: BP 117/73; PULSE 96; RESP 20; TEMP 36.6; O2SAT 96
== END 2024-03-22 09:33 | disposition home or self-care (01) ==
PROVIDERS: Emergency Provider Nurse Practitioner; PCP Nurse Practitioner
DX: N39.0 Urinary tract infection, site not specified (principal); R35.0 Frequency of micturition; R30.0 Dysuria; R39.15 Urgency of urination
CPT/HCPCS: 81003; 87086; 99212; 99214; G0463

== ENCOUNTER 2024-11-10 14:23 | Outpatient (CLI) | payer BC, SELFPAY ==
--- NOTE | 2024-11-10 14:26 | XR_ITS ---
FINAL REPORT CLINICAL HISTORY: left hip pain FINDINGS: LEFT HIP Three views were obtained. There is no fracture or dislocation. The joint spaces appear normal. No soft tissue abnormality is identified. IMPRESSION: No acute process. Reviewed, Interpreted and Dictated by Edmund Bernstein MD Transcribed by Mai Matos Authenticated and . [facility]
== END 2024-11-10 23:59 | disposition home or self-care (01) ==
LOC: RAD 14:24
PROVIDERS: PCP Nurse Practitioner; Visit Provider Physician Assistant
DX: M25.552 Pain in left hip (principal)
CPT/HCPCS: 73502

== ENCOUNTER 2024-12-13 13:17 | Outpatient (POV) | payer BC, SELFPAY ==
[2024-12-13 13:33] VITALS: BP 101/64; PULSE 87; RESP 18; O2SAT 96; BMI 28.7
--- NOTE | 2024-12-13 13:34 | EXP.PAIN.OV ---
HPI Data of Consult Patient: new to practice Consult date: 12/13/24 Requesting Physician: Edwige Marie APRN Primary Care Provider: Arlin Roman APRN Reason for consult: Low back pain, left side, left hip, left groin pain History of present illness: Ms. Fall is a 49 year old female who presents today as a new patient. She is a referral from Ignacio Maya. Today she rates her pain a 10 out of 10. Patient states that she has had chronic low back pain along the left side and into her left hip and left groin for over a year. Patient denies any specific trauma or injury that initially started this sensations. She states it is a constant achy sensation and does interfere with her ability perform activities of daily living such as cooking and cleaning. Patient has tried oral medications such as Tylenol along with heat and ice and topicals with minimal relief. Patient does state that heat makes it worse. Patient has also tried red light therapy that does seem to at least dulls some of the pain. Patient denies any recent physical therapy however has tried to go to the chiropractor however they will not work on her due to her lower lumbar spine issues and a history of heart related problems. Patient was given a home exercise program there at the orthopedic office and has been doing this for longer than 3 months with no additional changes. She denies any prior injection or surgery history. Patient does try and stay very active trying to walk 2 miles a day however this has been very limited due to this worsening pain. She is prescribed gabapentin from her primary care. Her Adam has been reviewed and is appropriate. Pain at rest (0-10 scale): 10 Has patient had previous pain injection?: No Conservative treatment options previously tried: Home exercise plan (Longer than 12 weeks) and Other (Please Describe) (Orthopedic Home exercise program) cc:: CC: Edwige Marie APRN [facility] Disclaimer: The information contained in this section may have been updated after the patient was seen, as this information can be updated by other users. Medical History Thyroid disease Diabetes mellitus, type 2 History of heart attack Hyperlipidemia Surgical History History of tonsillectomy History of hysterectomy History of cholecystectomy History of section Family History (Updated 12/13/24 @ 13:34 by Shelbie Valdez RN) Other Unknown family medical history Social History (Updated 12/13/24 @ 13:34 by Shelbie Valdez RN) Smoking Status: Never smoker alcohol intake: never substance use type: denies use current occupational status: other Travel in the last 8 weeks?: None household members: family housing: house Have you lived/traveled outside [place] in past 30 days?: No Contact w/someone who lives/traveled outside US past 30 days?: No Exposure to someone with infectious disease in past 14 days?: No Do you have a fever (greater than 100.4 F or 38 C)?: No Have you tested positive for COVID-19?: No Exposed to someone with COVID-19 in past 14 days?: No Do you have a sore throat?: No Do you have a cough?: No Do you have any weakness?: No Are you experiencing any nausea/vomitting?: No Do you have any diarrhea?: No Are you experiencing any unusual bleeding?: No Do you have any muscle aches/pain?: No Do you have any abdominal pain?: No Are you experiencing loss of taste or smell?: No Review of Systems Review of Systems Review of systems:: pertinent systems reviewed and negative unless documented below Review of systems (narrative): Review of Systems: General: No recent weight changes, no fever, no sleep disturbances Respiratory: No cough, no shortness of air, no recurring pulmonary infections Cardiovascular/peripheral vascular: No chest pain, no palpitations, no edema, no shortness of breath Gastrointestinal: No new onset incontinence, normal bowel movements reported Genitourinary: No new onset incontinence Musculoskeletal: Low back pain left-sided, left hip pain, left groin pain Psychiatric: [Normal mood/affect] Neurological: [Denies weakness in extremities], [denies balance issues] Meds Home Medications and Allergies Home Medications ?Medication ?Instructions ?Recorded ?Confirmed ?Type carvedilol 6.25 mg tablet 6.25 mg PO DAILY Heart disease 10/24/17 11/10/24 History furosemide 40 mg tablet 40 mg PO DAILY Fluid 10/24/17 11/10/24 History empagliflozin 10 mg tablet 10 mg PO DAILY 12/15/18 11/10/24 History (Jardiance) pantoprazole 40 mg tablet,delayed 40 mg PO BID 12/15/18 11/10/24 History release (Protonix) duloxetine 60 mg capsule,delayed 60 mg PO DAILY #30 caps 02/27/22 11/10/24 Rx release montelukast 10 mg tablet 10 mg PO DAILY #30 tabs 02/27/22 11/10/24 Rx levothyroxine 175 mcg tablet 175 mcg PO DAILY THYROID #30 tabs 03/01/22 11/10/24 Rx gabapentin 600 mg tablet 600 mg PO TID 03/06/22 11/10/24 History evolocumab 140 mg/mL subcutaneous 140 mg SQ WEEKLY 03/22/24 11/10/24 History pen injector (Repatha SureClick) losartan 25 mg tablet 25 mg PO DAILY 03/22/24 11/10/24 History nitrofurantoin 100 mg PO Q12H 7 days #14 caps 03/22/24 11/10/24 Rx monohydrate/macrocrystals 100 mg capsule (Macrobid) phenazopyridine 200 mg tablet 200 mg PO Q8H pain 2 days #6 tabs 03/22/24 11/10/24 Rx (Pyridium) semaglutide 2 mg/dose (8 mg/3 mL) 2 mg SQ WEEKLY 03/22/24 11/10/24 History subcutaneous pen injector (Ozempic) trazodone 50 mg tablet 50 mg PO DAILY 03/22/24 11/10/24 History New Prescriptions to Start Prescriptions: Allergies Allergy/AdvReac Type Severity Reaction Status Date / Time DYLAN Inhibitors Allergy Intermediate Nausea Verified 11/10/24 15:08 Sutures Allergy Rash Verified 11/10/24 15:08 dulaglutide (From [facility]) AdvReac Intermediate Vomiting Verified 11/10/24 15:08 Objective Narrative: Physical Exam: General: Alert and oriented x3, no acute distress, pleasant and cooperative Lungs: Respirations even and unlabored, symmetrical chest expansion Eyes: PERRL Musculoskeletal: Flexion and extension of lumbar [spine] somewhat guarded secondary to pain, [antalgic gait noted] point tenderness along left SI and left greater trochanteric bursa with positive left Sergio's, Patel's, Gaenslen's, compression and distraction exam Neurological: Speech clear, no gross sensory deficit Assessment and Plan *Assessment and plan (1) Sacroiliac joint dysfunction of left side: Status: Acute Category: Medical Code(s): M53.3 - Sacrococcygeal disorders, not elsewhere classified (2) Greater trochanteric bursitis of left hip: Status: Acute Category: Medical Code(s): M70.62 - Trochanteric bursitis, left hip Plan Patient is experiencing worsening pain along the low back and left hip. They did have limited range of motion of the lumbar spine along with point tenderness along her left greater trochanteric bursa and SI joint and a left bilateral Sergio's, Patel's, Gaenslen's, compression and distraction exam. I did discuss with the patient that I do believe they would benefit from left greater trochanteric bursa and SI injections. Risk and benefits were discussed with the patient and they would like to proceed forward with this option. Patient has tried and failed conservative therapy. Patient has been actively doing conservative treatment including oral medication, heat and ice, topicals, at home exercising and stretching for longer than 12 weeks that was physician guided from orthopedics. Patient is having to adjust their activity based off the increased pain resulting in activity modification. I do believe the patient would benefit from SI injection. If the patient does get significant relief following these injections we will see in the future if they would benefit from a second set with the possibility of SI fusion at a later date. This will be a diagnostic injection with less than 1 mL solution to be injected. Patient will be scheduled for diagnostic left SI injection and greater trochanteric bursa injection under fluoroscopy. I will also order the patient a compounded cream. Patient has been instructed to contact the clinic with any concerns before the next appointment. Dr. Leahy has reviewed this note and agrees with this plan of care. This note was dictated using voice recognition software and make contain errors or omissions. All injections are used with Lidocaine or Bupivacaine and dexamethasone unless diagnostic in which no steroids were injected.
== END 2024-12-13 23:59 | disposition home or self-care (01) ==
LOC: SC.PAIN 13:20
PROVIDERS: PCP Nurse Practitioner; Visit Provider Nurse Practitioner Family
DX: M53.3 Sacrococcygeal disorders, not elsewhere classified (principal); M70.62 Trochanteric bursitis, left hip
CPT/HCPCS: 99202; G0463

== ENCOUNTER 2025-01-04 08:36 | Day surgery (SDC) | payer BC, SELFPAY ==
[2025-01-04 08:46] VITALS: BP 122/74; PULSE 87; RESP 18; O2SAT 95; BMI 28.7
[2025-01-04 08:57] VITALS: BP 107/72; PULSE 97; RESP 18; O2SAT 98
[2025-01-04] MEDS: BUPIVACAINE 0.25% 10ML INJ 25 MG IJ (08:57)
[2025-01-04] MEDS: DEXAMETHASONE 10MG/ML 1ML VIAL 10 MG (08:57)
[2025-01-04] MEDS: LIDOCAINE 1% 5ML PF VIAL 5 ML (08:57)
[2025-01-04 08:58] VITALS: BP 107/72; PULSE 98; RESP 18; O2SAT 96
--- NOTE | 2025-01-04 09:02 | P.PCN_ITS ---
Procedure Date: 01/04/25 Time: 08:50 Anesthesiologist:: Roderick Aranda CRNA Complications:: None Pre-procedure Diagnosis:: Left trochanteric bursitis. Left sacroiliitis. Post-procedure Diagnosis:: Same. Indications for Procedure:: Patient is a pleasant 49-year-old female who comes our clinic today for a left sacroiliac joint injection of local anesthetic for diagnostic purpose. Also, left trochanteric bursa injection of cortisone local anesthetic. She describes the left low lumbar back pain and left posterior hip pain as constant, dull, aching. Also, patient reports left lateral hip pain that is constant, sharp, stabbing. Upon examination she has extreme point tenderness over the left sacroiliac joint as well as the left trochanteric bursa area. She rates her pain 7/10. Procedure Details:: Procedure: Left sacroiliac injection under fluoroscopy Informed consent was obtained and the risk and benefits of the procedure were explained to the patient.~ The patient was taken to the procedure room and noninvasive monitors were placed including noninvasive blood pressure cuff and pulse oximeter.~ The patient was placed prone on the procedure table.~ The~ left hip was cleansed using Betadine as a cleansing solution.~ C-arm fluorosocpy was used to view the left SI joint.~ The skin and subcutaneous tissues were anesthetized using Lidocaine 1.5% and a 25-gauge needle.~ After this, a 22-gauge spinal needle was inserted under fluoroscopic guidance into the inferior aspect of the left SI joint.~ Omnipaque dye was injected and a good spread was seen throughout the joint.~ After this, approximately 5 mL of bupivacaine 0.25% was incrementally injected into the sacroiliac joint.~ The patient tolerated the procedure well with no complications.~ The patient was observed in the Pain Clinic for a period of 30-45 minutes, then discharged home neurologically intact. Procedure:Left trochanteric bursa injection under fluoroscopy We then moved to the left trochanteric bursa.~ C-arm fluoroscopy was used to view the left greater trochanter.~ The skin and subcutaneous tissues overlying the left greater trochanter were anesthetized using lidocaine, 1.5% and a 25- gauge needle.~ After this, a 22-gauge spinal needle was inserted and advanced until it contacted the left greater trochanter.~ Dye was injected and good spread was seen throughout the left trochanteric bursa. After this, approximately 5 mL of bupivacaine, 0.25% and Depo-Medrol, 40 mg was incrementally injected into the left trochanteric bursa.~ The patient tolerated the procedure well with no complications. Plan and Disposition:: Patient was discharged without incident.
[2025-01-04 09:06] VITALS: BP 113/75; PULSE 95; RESP 18; O2SAT 96
== END 2025-01-04 09:06 | disposition home or self-care (01) ==
PROVIDERS: PCP Nurse Practitioner; Visit Provider Nurse Anesthetist, Certified Registered
DX: M70.62 Trochanteric bursitis, left hip (principal); M46.1 Sacroiliitis, not elsewhere classified; E11.9 Type 2 diabetes mellitus without complications; E78.5 Hyperlipidemia, unspecified; I25.2 Old myocardial infarction; E07.9 Disorder of thyroid, unspecified; Z88.8 Allergy status to other drugs, medicaments and biological substances; Z79.84 Long term (current) use of oral hypoglycemic drugs; Z79.890 Hormone replacement therapy; Z79.899 Other long term (current) drug therapy
CPT/HCPCS: 20610; 27096; 77002; J0665; J1100; J2003

== ENCOUNTER 2025-01-19 13:12 | Outpatient (POV) | payer BC, SELFPAY ==
--- OUTSIDE RECORDS SUMMARY | 2025-01-19 13:18 | XMS_ITS | Encounter Summary ---
Author Organization [facility] [address] Care Team Providers Care Adult Basic Education Instructor Name Role Phone Arlin Roman APRN Primary Care Provider Reason for Visit * Reason Onset Date Comments Medication Refill 11/30/2024 Encounter Details Date Type Department Care Team (Late st Contact Info) Description 11/30/2024 Refill [facility] [address] [place] [address] Arlin Roman APRN [address] [place] [address] Medication Refill Social History Tobacco Use Types Packs/Day Years Used Date Smoking Tobacco: Former Cigarettes 0.5 32.2 0 11/27/1992 - 11/07/2015 Smokeless Tobacco: Never Quit: 11/07/2015 Alcohol Use Standard Drinks/Week Comments Yes 1 (1 standard drink = 0.6 oz pure alcohol) ONLY DRINK LESS THAN 6 TIMES A YEAR PHQ-2 Answer Date Recorded PHQ-2 Total Score 0 06/16/2024 Sexually Active Control Partners Comments Yes Other-see comments Male Have had a hystorecotmy in 2011 Comments No Sex and Gender Information Value Date Recorded Sex Assigned at Not on file Legal Sex Female 2:00 AM EDT Gender Identity Not on file Sexual Orientation Not on file 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 Answer Date of Assessment Author No 04/15/2023 2:38 PM EDT Spencer Purcell CCMA * Is the person blind or does he/she have serious difficulty seeing even when wearing glasses? Answer Date of Assessment Author No 04/15/2023 2:38 PM EDT Spencer Purcell CCMA * Does this person have serious difficulty walking or climbing stairs? Answer Date of Assessment Author No 04/15/2023 2:38 PM EDT Spencer Purcell CCMA * Does this person have difficulty dressing or bathing? Answer Date of Assessment Author No 04/15/2023 2:38 PM EDT Spencer Purcell CCMA * Because of a physical, mental or emotional condition, does this person have difficulty doing errands alone such as visiting a doctor's office or shopping? Answer Date of Assessment Author No 04/15/2023 2:38 PM EDSpencer Vasquez CCMA documented as of this encounter Mental Status * Because of a physical, mental or emotional condition, does this person have serious difficulty concentrating, remembering or making decisions? Answer Entry Date Author No 04/15/2023 2:38 PM EDSpencer Vasquez CCMA documented in this encounter Ordered Prescriptions Prescription Sig Dispense Quantity Refills Last Filled Start Date End Date Cholecalciferol, Vitamin D3, 125 mcg (5,000 unit) Oral TabletIndications:Lo w vitamin D level Take 1 Tablet by mouth daily. 30 Tablet 2 11/30/2024 cetirizine (ZYRTEC) 10 mg Oral TabletIndications:Ch ronic allergic rhinitis Take 1 Tablet by mouth daily. 90 Tablet 3 11/30/2024 lidocaine (LIDODERM) 5 % Top Adhesive Patch, MedicatedIndications :Degeneration of intervertebral disc of lumbar region with discogenic back pain Place 1 Patch onto the skin every 12 hours. 30 Patch 11/30/2024 estradioL (ESTRACE) 0.01 % (0.1 mg/gram) Vagl CreamIndications:Vag inal atrophy Place 1 g vaginally three times a week. 42.5 g 1 12/01/2024 nystatin (MYCOSTATIN) Top Cream Apply topically 2 times daily. 30 g 2 11/30/2024 losartan (COZAAR) 25 mg Oral TabletIndications:Es sential hypertension Take 1 Tablet by mouth daily. 90 Tablet 3 11/30/2024 5 carvediloL (COREG) 6.25 mg Oral TabletIndications:Es sential hypertension Take 1 Tablet by mouth 2 times daily (with meals). 180 Tablet 3 11/30/2024 traZODone (DESYREL) 50 mg Oral TabletIndications:In somnia, persistent Take 1 Tablet by mouth nightly. 90 Tablet 3 11/30/2024 5 aspirin 81 mg Oral Tablet, Delayed Release (E.C.)Indications:An nual physical exam Take 1 Tablet by mouth daily. 90 Tablet 3 11/30/2024 5 albuterol (PROVENTIL HFA;VENTOLIN HFA) 90 mcg/actuation Inhl HFA Aerosol InhalerIndications:B ronchitis Inhale 2 Puffs into the lungs every 4 hours as needed for Wheezing. 6.7 g 2 11/30/2024 5 documented in this encounter Miscellaneous Notes * Telephone Encounter - Zoe Purcell CCMA - 11/30/2024 2:28 PM EDT Patient needs an appointment prior to refill. documented in this encounter Plan of Treatment Upcoming Encounters Date Type Department Care Team (Late st Contact Info) Description 04/21/2025 2:30 PM EDT Office Visit [facility] [address] [address] Javier Bhatia MD [address] [place] [address] [address] [place] [address] 05/19/2025 9:50 AM EST Office Visit [facility] Diabetes [place] 1500 [facility] [address] [place] [phone] Robson Viveros MD 1500 [facility] [address] [place] [phone] documented as of this encounter Goals Goal Patient Goal Type Associated Problems Recent Progress Patient-Stated? Author Blood Pressure < 140/90 Blood Pressure 122/87(2024 10:12 AM EDT) Nicole Wang BMI (Calculated) < 30 General 29(11/15/2024 10:12 AM EDT) Nicole Wang Maintain a healthy diet, exercise regularly and maintain an ideal body weight General No Nicole Cardona Stay Tobacco Free Lifestyle Nicole Wang HEMOGLOBIN A1C < 7.0 Result Component 5.3( 6:59 AM EDT) Nicole Wang documented as of this encounter Visit Diagnoses Diagnosis Chronic allergic rhinitis Allergic rhinitis, cause unspecified Low vitamin D level Bronchitis Bronchitis, not specified as acute or chronic Annual physical exam Routine general medical examination at a health care facility Anxiety and depression Dysthymic disorder Insomnia, persistent Persistent disorder of initiating or maintaining sleep Essential hypertension Unspecified essential hypertension Vaginal atrophy 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 Reorder 05/21/2023 11/30/2024 Cholecalciferol, Vitamin D3, 125 mcg (5,000 unit) Oral TabletIndications:Low vitamin D level Take 1 Tablet by mouth daily. Reorder 05/21/2023 11/30/2024 albuterol (PROVENTIL HFA;VENTOLIN HFA) 90 mcg/actuation Inhl HFA Aerosol InhalerIndications:Bronc hitis USE 2 INHALATIONS ORALLY EVERY 4 HOURS NEEDED FORWHEEZING Reorder 07/22/2023 11/30/2024 aspirin 81 mg Oral Tablet, Delayed Release (E.C.)Indications:Annual physical exam TAKE 1 TABLET DAILY Reorder 04/28/2024 11/30/2024 traZODone (DESYREL) 50 mg Oral TabletIndications:Insomn ia, persistent TAKE 1 TABLET NIGHTLY Reorder 05/17/2024 11/30/2024 carvediloL (COREG) 6.25 mg Oral TabletIndications:Essent ial hypertension Take 1 Tablet by mouth 2 times daily (with meals). Reorder 05/17/2024 11/30/2024 losartan (COZAAR) 25 mg Oral TabletIndications:Essent ial hypertension Take 1 Tablet by mouth daily. Reorder 05/17/2024 11/30/2024 nystatin (MYCOSTATIN) Top Cream Apply topically 2 times daily. Reorder 07/12/2024 11/30/2024 estradioL (ESTRACE) 0.01 % (0.1 mg/gram) Vagl CreamIndications:Vaginal atrophy Place 1 g vaginally three times a week. Reorder 07/12/2024 11/30/2024 lidocaine (LIDODERM) 5 % Top Adhesive Patch, MedicatedIndications:Deg eneration of intervertebral disc of lumbar region with discogenic back pain Place 1 Patch onto the skin every 12 hours. Reorder 11/22/2024 11/30/2024 documented as of this encounter Care Teams Adult Basic Education Instructor Relationship Specialty Start Date End Date [place] [address] [place] [address] PCP - General Nurse Practitioner-Family 03/08/22 documented as of this encounter
--- OUTSIDE RECORDS SUMMARY | 2025-01-19 13:18 | XMS_ITS | Encounter Summary ---
Author Organization [place] [address] Care Team Providers Care Cross Country And Track And Field Coach Name Role Phone Arlin Roman APRN Primary Care Provider [phone] Reason for Visit * Reason Onset Date Comments Medication Refill 01/11/2025 Encounter Details Date Type Department Care Team (Late st Contact Info) Description 01/11/2025 Refill [facility] [address] [place] [address] Arlin Roman APRN [address] [place] [address] Medication Refill Social History Tobacco Use [...] comments Male Have had a hystorecotmy in 2012 Comments No Sex and Gender Information Value [...] 04/15/2023 2:38 PM EDT Spencer Purcell CCMA documented as of this encounter Mental Status * Because of a physical, mental or emotional condition, does this person have serious difficulty concentrating, remembering or making decisions? Answer Entry Date Author No 04/15/2023 2:38 PM EDT Spencer Purcell CCMA documented in this encounter Ordered Prescriptions Prescription Sig Dispense Quantity Refills Last Filled Start Date End Date empagliflozin (JARDIANCE) 25 mg Oral TabletIndications:D yslipidemia associated with type 2 diabetes mellitus (HCC) Take 1 Tablet by mouth daily. 90 Tablet 3 01/11/2025 documented in this encounter Plan of Treatment Upcoming Encounters Date Type Department Care Team (Late st Contact Info) Description 04/21/2025 2:30 PM EDT [place] [address] Javier Bhatia MD [address] [facility] [address] [place], [place] [id number] 05/19/2025 9:50 AM EST Office Visit [facility] Diabetes [place] [address] [facility] [address] [place] [phone] Robson Viveros MD [address] [phone] documented as of this encounter Goals Goal Patient Goal Type Associated Problems Recent Progress Patient-Stated? Author Blood Pressure < 140/90 Blood Pressure 122/87(2024 10:12 AM EDT) Nicole Wang BMI (Calculated) < 30 General 29(11/15/2024 10:12 AM EDT) Nicole Wang Maintain a healthy diet, exercise regularly and maintain an ideal body weight General No Nicole Cardona Stay Tobacco Free Lifestyle No Nicole Cardona HEMOGLOBIN A1C < 7.0 Result Component 5.3( 6:59 AM EDT) Nicole Wang documented as of this encounter Visit Diagnoses Diagnosis Dyslipidemia associated with type 2 diabetes mellitus (HCC) Type II or unspecified type diabetes mellitus with other specified manifestations, not stated as uncontrolled Type 2 diabetes mellitus with hyperlipidemia (HCC) Degenerative disc disease, lumbar Degeneration of lumbar or lumbosacral intervertebral disc documented in this encounter Discontinued Medications Medication Sig Discontinue Reason Start Date End Da te empagliflozin (JARDIANCE) 25 mg Oral TabletIndications:Dyslip idemia associated with type 2 diabetes mellitus (HCC) Take 1 Tablet by mouth daily. Reorder 04/30/2024 01/11/2025 documented as of this encounter Care Teams Cross Country And Track And Field Coach Relationship Specialty Start Date End Date Arlin Roman APRN [address] [place] [address] PCP - General Nurse Practitioner-Family 03/08/22 documented as of this encounter
--- OUTSIDE RECORDS SUMMARY | 2025-01-19 13:18 | XMS_ITS | Encounter Summary ---
Author Organization [facility] [address] Care Team Providers Care Sanitarian Inspector Name Role Phone Arlin Roman APRN Primary Care Provider Reason for Visit * Reason Onset Date Comments Patient Question 01/12/2025 Encounter Details Date Type Department Care Team (Late st Contact Info) Description 01/12/2025 Telephone [facility] [address] [address] Javier Bhatia MD [address] [facility] [place] [address] Patient Question Social History Tobacco Use Types Packs/Day Years [...] Spencer Purcell CCMA documented in this encounter Miscellaneous Notes * Telephone Encounter - Maylin Ferris RMA - 01/12/2025 1:58 PM EDT Noted. * Telephone Encounter - Angelica Nicholson, Clerical Staff - 01/12/2025 1:55 PM EDT pt r/s appt * Telephone Encounter - Maylin Ferris RMA - 01/12/2025 1:48 PM EDT HIPAA compliant voicemail left for patient to call the office. 02/23/25 appointment needs rescheduled. * Telephone Encounter - Felicitas Landa - 01/12/2025 1:00 PM EDT Pt missed call from MA and returning call. Please call and advise. documented in this encounter Plan of Treatment Upcoming Encounters Date Type Department Care Team (Late st Contact Info) Description 04/21/2025 2:30 PM EDT [place] [address] Javier Bhatia MD [address] [place] [address] 05/19/2025 9:50 AM EST Office [facility] Diabetes [place] [address] [facility] [address] [place] [phone] Robson Viveros MD [address] [facility] [address] [place] [phone] documented as of this encounter Goals Goal Patient Goal Type Associated Problems Recent Progress Patient-Stated? Author Blood Pressure < 140/90 Blood Pressure 122/87(2024 10:12 AM EDT) Nicole aWng BMI (Calculated) < 30 General 29(11/15/2024 10:12 AM EDT) Nicoel Wang Maintain a healthy diet, exercise regularly and maintain an ideal body weight General No Nicole Cardona Stay Tobacco Free Lifestyle Nicole Wang HEMOGLOBIN A1C < 7.0 Result Component 5.3( 5 6:59 AM EDT) No Nicole Cardona documented as of this encounter Visit Diagnoses Not on filedocumented in this encounter Care Teams Sanitarian Inspector Relationship Specialty Start Date End Date Arlin Roman APRN [address] [place], [place] [address] PCP - General Nurse Practitioner-Family 03/08/22 documented as of this encounter
--- OUTSIDE RECORDS SUMMARY | 2025-01-19 13:18 | XMS_ITS | Encounter Summary ---
Author Organization [facility] [address] Care Team Providers Care Property Field Adjuster Name Role Phone Arlin Roman APRN Primary Care Provider Reason for Visit * Reason Onset Date Comments Medication Refill 01/11/2025 Encounter Details Date Type Department Care Team (Late st Contact Info) Description [facility]/11[facility]20[facility] Diabetes [place] [address] [facility] [address] [place] [phone] Robson Viveros MD [address] [facility] [address] [place] [address] Medication Refill Social History Tobacco Use Types [...] Refills Last Filled Start Date End Date Alcohol Swabs (ALCOHOL PREP PADS) Top Pads, Medicated Use to check glucose four times daily. 400 Each 1 01/11/2025 documented in this encounter Plan of Treatment Upcoming Encounters Date Type Department Care Team (Late st Contact Info) Description 04/21/2025 2:30 PM EDT [place] [address] Javier Bhatia MD [address] [facility] [place] [address] 05/19/2025 9:50 AM EST Office Visit [facility] Diabetes [place] [address] [facility] [address] [place] [phone] Robson Viveros MD [address] [phone] documented as of this encounter [...] Diagnoses Not on filedocumented in this encounter Discontinued Medications Medication Sig Discontinue Reason Start Date End Da te Alcohol Swabs (ALCOHOL PREP PADS) Top Pads, Medicated Use to check glucose four times daily. Reorder 10/08/2024 01/11/2025 documented as of this encounter Care Teams Property Field Adjuster Relationship Specialty Start Date End Date Arlin Roman APRN [address] [place] [address] PCP - General Nurse Practitioner-Family 03/08/22 documented as of this encounter
--- OUTSIDE RECORDS SUMMARY | 2025-01-19 13:18 | XMS_ITS | Encounter Summary ---
Author Organization [place] [address] Care Team Providers Care Bus Person Dishwasher Name Role Phone Arlin Roman APRN Primary Care Provider Reason for Visit * Reason Comments Medication Refill Encounter Details Date Type Department Care Team (Late st Contact Info) Description 12/12/2024 Refill [facility] [place] [address] [place] [address] Arlin Roman APRN [address] [place] [address] Medication Refill Social History Tobacco Use Types [...] of Assessment Author No 04/15/2023 2:38 PM Spencer Rodriguez CCMA * Is the person blind or does he/she have serious difficulty seeing even when wearing glasses? Answer Date of Assessment Author No 04/15/2023 2:38 PM Spencer Rodriguez CCMA * Does this person have serious difficulty walking or climbing stairs? Answer Date of Assessment Author No 04/15/2023 2:38 PM Spencer Rodriguez CCMA * Does this person have difficulty dressing or bathing? Answer Date of Assessment Author No 04/15/2023 2:38 PM EDSpencer Vasquez CCMA * Because of a physical, mental or emotional condition, does this person have difficulty doing errands alone such as visiting a doctor's office or shopping? Answer Date of Assessment Author No 04/15/2023 2:38 PM Spencer Rodriguez CCMA documented as of this encounter Mental Status * Because of a physical, mental or emotional condition, does this person have serious difficulty concentrating, remembering or making decisions? Answer Entry Date Author No 04/15/2023 2:38 PM Spencer Rodriguez CCMA documented in this encounter Ordered Prescriptions Prescription Sig Dispense Quantity Refills Last Filled Start Date End Date montelukast (SINGULAIR) 10 mg Oral TabletIndications: Chronic allergic rhinitis TAKE 1 TABLET NIGHTLY 30 Tablet 12/14/2024 5 DULoxetine (CYMBALTA) 60 mg Oral Capsule, Delayed Release(E.C.)Indic ations:Degenerativ e disc disease, lumbar,Fibromyalgi a TAKE 1 CAPSULE TWICE DAILY 60 Capsule 12/14/2024 5 documented in this encounter Miscellaneous Notes * Telephone Encounter - Christen Thurston CPhT - 12/14/2024 9:40 AM EDT Duloxetine - Future Visit: N/A Last Assessed Visit: 01/23/24 Follow-Up Date: 07/25/24 Appointment protocol failed. No violette supply sent to pharmacy. Routed to Office. Montelukast - Future Visit: N/A Last Assessed Visit: N/A Follow-Up Date: N/A Appointment protocol failed. No violette supply sent to pharmacy. Routed to Office. documented in this encounter Plan of Treatment Upcoming Encounters Date Type Department Care Team (Late st Contact Info) Description 04/21/2025 2:30 PM EDT Office Visit [facility] [address] [address] Javier Bhatia MD [address] [place] [address] 05/19/2025 9:50 AM EST Office [facility] Diabetes [place] 1500 [facility] [address] [place] [phone] Robson Vivreos MD [address] [phone] documented as of this encounter Goals Goal Patient Goal Type Associated Problems Recent Progress Patient-Stated? Author Blood Pressure < 140/90 Blood Pressure 122/87(2024 10:12 AM EDT) Nicole Wang BMI (Calculated) < 30 General 29(11/15/2024 10:12 AM EDT) Nicole Wang Maintain a healthy diet, exercise regularly and maintain an ideal body weight General Nicole Wang Stay Tobacco Free Lifestyle Nicole Wang HEMOGLOBIN A1C < 7.0 Result Component 5.3( 6:59 AM EDT) No Brendan, Shana documented as of this encounter Visit Diagnoses Diagnosis Degenerative disc disease, lumbar Degeneration of lumbar or lumbosacral intervertebral disc Fibromyalgia Mylagia and myositis, unspecified Chronic allergic rhinitis Allergic rhinitis, cause unspecified documented in this encounter Discontinued Medications Medication Sig Discontinue Reason Start Date End Da te DULoxetine (CYMBALTA) 60 mg Oral Capsule, Delayed Release(E.C.)Indications :Degenerative disc disease, lumbar,Fibromyalgia TAKE 1 CAPSULE TWICE DAILY 11/17/2024 12/14/2024 montelukast (SINGULAIR) 10 mg Oral TabletIndications:Chroni c allergic rhinitis TAKE 1 TABLET NIGHTLY 11/17/2024 12/14/2024 documented as of this encounter Care Teams Bus Person Dishwasher Relationship Specialty Start Date End Date Arlin Roman APRN [address] [place] [address] PCP - General Nurse Practitioner-Family 03/08/22 documented as of this encounter
--- OUTSIDE RECORDS SUMMARY | 2025-01-19 13:18 | XMS_ITS | Encounter Summary ---
Author Organization [facility] [place] [address] Care Team Providers Care Technical Trainer Name Role Phone Arlin Roman APRN Primary Care Provider [phone] Reason for Visit * Reason Onset Date Comments Medication Refill 01/11/2025 Encounter Details Date Type Department Care Team (Late st Contact Info) Description 01/11/2025 Refill [facility] [place] [address] [place] [address] Javier Bhatia MD [address] [facility] [place] [address] Medication Refill Social History Tobacco Use Types [...] Refills Last Filled Start Date End Date nitroGLYCERIN (NITROSTAT) 0.4 mg SL Tablet, SublingualIndicati ons:Essential hypertension,Bruit ,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 Dissolve 1 tablet under the tongue at onset of chest pain. For persistent or worsening pain, call 911 and repeat dose every 5 minutes, up to 3 tablets in a 15-minute period. 25 Tablet 1 01/11/2025 fUROsemide (LASIX) 40 mg Oral Tablet Take 1 Tablet by mouth daily. 90 Tablet 1 01/11/2025 documented in this encounter Plan of Treatment Upcoming Encounters Date Type Department Care Team (Late st Contact Info) Description 04/21/2025 2:30 PM EDT Office Visit [facility] [place] [address] [place] [address] Javier Bhatia MD [address] [place] [address] [address] [facility] [facility] [place] [address] 05/19/2025 9:50 AM EST Office [facility] Diabetes [place] [address] [facility] [address] [place] [phone] Robson Viveros MD [address] [phone] documented as of this encounter [...] as of this encounter Visit Diagnoses Diagnosis Essential hypertension Unspecified essential hypertension Bruit Other symptoms involving cardiovascular system 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 Reorder 10/08/2024 01/11/2025 nitroGLYCERIN (NITROSTAT) 0.4 mg SL Tablet, SublingualIndications:E ssential hypertension,Bruit,Jerel nary artery disease involving chenega coronary artery of chenega heart without angina pectoris PLACE 1 TABLET UNDER THE TONGUE AND ALLOW TO DISSOLVE NEEDED FOR CHEST PAIN Reorder 12/21/2024 01/11/2025 documented as of this encounter Care Teams Technical Trainer Relationship Specialty Start Date End Date Arlin Roman APRN [address] [place], [place] [address] PCP - General Nurse Practitioner-Family 03/08/22 documented as of this encounter
--- OUTSIDE RECORDS SUMMARY | 2025-01-19 13:18 | XMS_ITS | Clinical Summary ---
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 Medications MULTI-VITAMIN ORAL Take by mouth daily. AT hs Active ascorbic acid, vitamin C, (VITAMIN C) 500 mg Oral Tablet Take 1,000 mg by mouth daily. Active ZINC ORAL Take 1 Tablet by mouth daily. Active evolocumab (REPATHA SURECLICK) 140 mg/mL SubQ Pen InjectorIndicatio ns:Arteriosclerot ic heart disease (ASHD) Subcutaneous (Inject under the skin) 1 mL every 14 days. 6 mL 3 01/04/20 25 12:50 PM EDT 024 Active LORazepam (ATIVAN) 1 mg Oral TabletIndications :Anxiety and depression Take 1 Tablet by mouth daily as needed for Anxiety. 30 Tablet 024 Active semaglutide (OZEMPIC) 2 mg/dose (8 mg/3 mL) SubQ Pen InjectorIndicatio ns:Type 2 diabetes mellitus with hyperlipidemia (HCC) Subcutaneous (Inject under the skin) 2 mg once a week. 3 mL 11 024 Active gabapentin (NEURONTIN) 600 mg Oral TabletIndications :Degenerative disc disease, lumbar Take 1 Tablet by mouth 3 times daily. 90 Tablet 5 025 Active Blood-Glucose Meter Misc Kit 1 Each by [facility].(Non-Drug; Combo Route) route continuous. 1 Kit 025 Active Lancets Misc Misc 1 Each by [facility].(Non-Drug; Combo Route) route 4 times daily. 400 Each 1 025 Active Blood Sugar Diagnostic Misc Strip 1 Strip by [facility].(Non-Drug; Combo Route) route 4 times daily. 400 Each 1 025 Active LEVOthyroxine (SYNTHROID) 175 mcg Oral TabletIndications :Hypothyroidism, unspecified type Take 1 tablet daily 96 Tablet 3 025 Active cetirizine (ZYRTEC) 10 mg Oral TabletIndications :Chronic allergic rhinitis Take 1 Tablet by mouth daily. 90 Tablet 3 025 Active Cholecalciferol, Vitamin D3, 125 mcg (5,000 unit) Oral TabletIndications :Low vitamin D level Take 1 Tablet by mouth daily. 30 Tablet 2 025 Active ACCU-CHEK GUIDE GLUCOSE METER Misc Misc 1 Each by Misc.(Non-Drug; Combo Route) route 5 times daily. 1 Each 025 Active Blood Sugar Diagnostic (ACCU-CHEK GUIDE TEST STRIPS) Misc Strip 1 Strip by Mis.(Non-Drug; Combo Route) route 5 times daily. 500 Strip 1 025 Active Lancets [facility] Use to test blood sugars 5 times 500 Each 1 025 Active fUROsemide (LASIX) 40 mg Oral Tablet Take 1 Tablet by mouth daily. 90 Tablet 1 Active nitroGLYCERIN (NITROSTAT) 0.4 mg SL Tablet, SublingualIndicat ions:Essential hypertension,Brui t,Coronary artery disease involving nikolski coronary artery of nikolski heart without angina pectoris Place 1 Tablet under the tongue every 5 minutes as needed for Chest pain. Dissolve 1 tablet under the tongue at onset of chest pain. For persistent or worsening pain, call 911 and repeat dose every 5 minutes, up to 3 tablets in a 15-minute period. 25 Tablet 1 Active pantoprazole (PROTONIX) 40 mg Oral Tablet, Delayed Release (E.C.)Indications :Gastroesophageal reflux disease without esophagitis Take 1 Tablet by mouth 2 times daily. 180 Tablet Active triamcinolone (KENALOG) 0.1 % Top CreamIndications: Stasis dermatitis of both legs Apply topically 2 times daily. 80 g Active fluticasone propionate (FLONASE) 50 mcg/actuation Nasl [place], SuspensionIndicat ions:Head congestion 1 [place] by Nasal route daily. 1 Each Active albuterol (PROVENTIL HFA;VENTOLIN HFA) 90 mcg/actuation [place]hl HFA Aerosol InhalerIndication s:Bronchitis Inhale 2 Puffs into the lungs every 4 hours as needed for Wheezing. 6.7 g Active aspirin 81 mg Oral Tablet, Delayed Release (E.C.)Indications :Annual physical exam Take 1 Tablet by mouth daily. 90 Tablet 025 Active traZODone (DESYREL) 50 mg Oral TabletIndications :Insomnia, persistent Take 1 Tablet by mouth nightly. 90 Tablet 025 Active carvediloL (COREG) 6.25 mg Oral TabletIndications :Essential hypertension Take 1 Tablet by mouth 2 times daily (with meals). 180 Tablet Active losartan (COZAAR) 25 mg Oral TabletIndications :Essential hypertension Take 1 Tablet by mouth daily. 90 Tablet 025 Active nystatin (MYCOSTATIN) Top Cream Apply topically 2 times daily. 30 g Active estradioL (ESTRACE) 0.01 % (0.1 mg/gram) Vagl CreamIndications: Vaginal atrophy Place 1 g vaginally three times a week. 42.5 g 1 025 Active lidocaine (LIDODERM) 5 % Top Adhesive Patch, MedicatedIndicati ons:Degeneration of intervertebral disc of lumbar region with discogenic back pain Place 1 Patch onto the skin every 12 hours. 30 Patch 025 Active DULoxetine (CYMBALTA) 60 mg Oral Capsule, Delayed Release(E.C.)[place] cations:Degenerat marlee disc disease, lumbar,Fibromyalg ia Take 1 Capsule by mouth 2 times daily. 60 Capsule 025 Active montelukast (SINGULAIR) 10 mg Oral TabletIndications :Chronic allergic rhinitis Take 1 Tablet by mouth nightly. 30 Tablet 025 Active Alcohol Swabs (ALCOHOL PREP PADS) Top Pads, Medicated Use to check glucose four times daily. 400 Each 1 025 Active empagliflozin (JARDIANCE) 25 mg Oral TabletIndications :Dyslipidemia associated with type 2 diabetes mellitus (HCC) Take 1 Tablet by mouth daily. 90 Tablet 3 025 Active nitroGLYCERIN (NITROSTAT) 0.4 mg SL Tablet, SublingualIndicat ions:Essential hypertension,Brui t,Coronary artery disease involving nikolski coronary artery of nikolski heart without angina pectoris Place 1 Tablet under the tongue every 5 minutes as needed for Chest pain. 25 Tablet 1 025 2024 Discontinued amoxicillin (AMOXIL) 500 mg Oral Capsule Take 1 Capsule by mouth 3 times daily for 10 days. 30 Capsule 025 2024 Active Problems Problem Noted Date Diagnosed Date Arm mass, left 09/30/2024 Statin myopathy 02/25/2023 Type 2 diabetes mellitus without retinopathy Overview (04/15/2023): Lab Results Component Value Date HGBA1C 7.5 (H) 12/10/2022 Intolerance to metformin On jardiance and wegovy Statin intolerance On repatha and losartan for risk reduction. Assessment & Plan (12/26/2022 3:08 PM EDT): Discussed need to continuously control blood sugar and blood pressure. Stressed the importance of continuing to follow the advice of patient's PCP and other providers coordinating care. Patient has no evidence of diabetic retinopathy at this time and will follow up for next diabetic eye exam. Patient was instructed to return immediately with any changes in vision. Refractive error 12/26/2022 Assessment & Plan (12/26/2022 3:08 PM EDT): Mild update to spectacle Rx. Pt was educated about [facility] policy. I educated her about better contact lens compliance and hygiene habits. Copy of Rx released per pt request. Primary osteoarthritis of right knee 05/24/2022 Inflammatory arthritis 04/30/2022 Bursitis of right knee 04/30/2022 Degenerative disc disease, lumbar 03/08/2022 Overview (01/29/2024): Multilevel On gabapentin Lowest tolerated dose Med mgmt reviewed and updated Last Successful PDMP Review: 01/29/2024 3:10 PM by Arlin Roman APRN Assessment & Plan (04/30/2024 3:06 PM EDT): On cymbalta bid and gabapentin TID Med mgmt reviewed and up to date. Fatty liver 03/08/2022 Overview (03/08/2022): Monitor LFT Low fat diet, avoid tylenol and alcohol Chronic allergic rhinitis 03/08/2022 Overview (03/08/2022): On singulair and zyrtec Low vitamin D level 03/08/2022 Overview (04/15/2023): On replacement, 5000units once per day. Type 2 diabetes mellitus with hyperlipidemia Overview (10/31/2023): Lab Results Component Value Date HGBA1C 5.2 07/28/2023 HGBA1C 8.0 (H) 04/25/2023 HGBA1C 7.5 (H) 12/10/[address] Viveros On Jardiance and ozempic (interested in bumping ozempic up to maximize weight loss) Intolerance to metformin and mounjaro, and statin On asa and repatha Assessment & Plan (04/30/2024 3:06 PM EDT): - co-managed with Endocrinology and advised to follow-up as directed Orders: semaglutide (OZEMPIC) 2 mg/dose (8 mg/3 mL) SubQ Pen Injector; Subcutaneous (Inject under the skin) 2 mg once a week. S/P PORTER (total abdominal hysterectomy) 2 Dyslipidemia associated with type 2 diabetes leroy litus 11/20/2018 Assessment & Plan (04/30/2024 3:06 PM EDT): - co-managed with Endocrinology and advised to follow-up as directed On repatha d/t statin intolerance. Orders: empagliflozin (JARDIANCE) 25 mg Oral Tablet; Take 1 Tablet by mouth daily. Assessment & Plan (12/04/2023 3:55 PM EDT): Lab Results Component Value Date HGBA1C 5.1 11/11/2023 HGBA1C 5.2 07/28/2023 HGBA1C 8.0 (H) 04/25/2023 - co-managed with Endocrinology and advised to follow-up as directed Gastroesophageal reflux disease 05/17/2016 Assessment & Plan (04/30/2024 3:06 PM EDT): Orders: pantoprazole (PROTONIX) 40 mg Oral Tablet, Delayed Release (E.C.); Take 1 Tablet by mouth 2 times daily. Hyperlipidemia 05/17/2016 Overview (04/15/2023): On repatha Statin intolerance. Essential hypertension 11/29/2015 Overview (04/15/2023): BP Readings from Last 3 Encounters: 04/15/23 118/80 02/25/23 122/80 02/07/23 114/72 On coreg and losartan Pure hypercholesterolemia 11/29/2015 Overview (04/15/2023): On repatha Arteriosclerotic heart disease (ASHD) 11/23/2015 Overview (03/08/2022): Cath October 2015 Final Impression: 1. Coronary artery disease as described above. 2. Plaque dissection and thrombosis of the LAD 3. Successful PCI of the using a Xience drug eluting stent 4. Left ventricular filling pressures are elevated 5. Segmental left ventricular dysfunction Followed by Dr. Bhatia Assessment & Plan (10/18/2022 1:44 PM EDT): On crestor 20. Goal is LDL <55, last recording 04/2022, 79. Recommend increasing statin, pt declines d/t severe chronic body aches that she contributes to starting medication Discussed repatha and she is agreeable, rx to pharmacy. Paroxysmal atrial fibrillation 11/08/2015 Overview (11/08/2015): Short run during acute MO - resolved Anxiety and depression 11/08/2015 Overview (03/04/2023): On cymbalta with daily PRN use of ativan, lowest tolerated dose Med mgmt reviewed and up to date. Assessment & Plan (04/30/2024 3:06 PM EDT): On cymbalta bid and ativan daily as needed at lowest tolerated dose. Med mgmt reviewed and up to date. Orders: LORazepam (ATIVAN) 1 mg Oral Tablet; Take 1 Tablet by mouth daily as needed for Anxiety. Hypothyroidism 11/08/2015 Overview (03/08/2022): On synthroid Hirsutism 03/08/2014 Resolved Problems Problem Noted Date Diagnosed Date Resolved Date Exposure to COVID-19 virus 04/15/2023 1 Otitis media 04/15/2023 04/15/2023 Urinary tract infection 04/15/2023 10/0 09/2022 Upper respiratory infection 04/15/2023 04/15/2023 Viral pharyngitis 04/15/2023 04/15/2023 Family history of premature CAD 11/17/2018 03/25/2019 Overview (11/17/2018): In Dad and brother Wound infection 09/25/2016 04/15/2023 Nausea and vomiting 09/09/2016 04/15/20 Ovarian remnant syndrome 09/05/201609/2022 Estrogen excess 05/17/2016 04/15/2023 Ovarian mass 05/17/2016 04/15/2023 Pelvic mass in female 05/07/20162021 STEPHANIE (obstructive sleep apnea) 01/31/2016 04/15/2023 Overview (03/08/2022): STEPHANIE+ mild but ++CHF Has cpap doesn't use it. Dr Reich Ischemic chest pain 11/29/2015 12/07/19 16 ASHD (arteriosclerotic heart disease) 11/29/2015 03/25/2019 Ischemic cardiomyopathy 11/09/201507/14 Overview (11/09/2015): EF 40% Coronary artery disease invo lving nikolski heart without angina pectoris 11/08/2015 04/02/2018 Overview (11/23/2015): PCI/Cath October 2015: Final Impression: 1. Coronary artery disease as described above. 2. Plaque dissection and thrombosis of the LAD 3. Successful PCI of the using a Xience drug eluting stent 4. Left ventricular filling pressures are elevated 5. Segmental left ventricular dysfunction Plan: 1. Asa daily indefinitely 2. Effient 10 mg daily Plavix 75 mg daily for a minimum of 12 months. 3. Beta angelina, statin and ACEI. Tobacco abuse 11/08/2015 12/07/2015 Libido, decreased 03/08/2014 04/15/2023 Chest discomfort 04/02/2018 Encounters Date Type Department Care Team Description 01/13/2025 Specialty Pharmacy [facility] [address] [place] [address] Nita Cantu CPhT Pharmacy Hyperlipidemia Management (Repatha) 01/12/2025 Telephone [facility] [address] [place] [address] Javier Bhatia MD Patient Question 01/11/2025 Refill [facility] [place] [facility] [address] [place] [address] Arlin Roman APRN Medication Refill 01/11/2025 Refill [place] [phone] Robson Viveros MD Medication Refill 01/11/2025 Refill [facility] [address] [place] [address] Arlin Roman APRN Medication Refill 01/11/2025 Refill [place] [phone] Robson Viveros MD Medication Refill 01/11/2025 [place] [address] Javier Bhatia MD Medication Refill 01/11/2025 Refill [facility] [address] [place] [address] Arlin Roman APRN Medication Refill 12/24/2024 Specialty Pharmacy [facility] [address] [place] [address] Shania Yu [facility] Pharmacy Hyperlipidemia Management (Repatha); Pharmacy Reassessment 12/21/2024 [place] [address] Javier Bhatia MD Medication Refill 12/12/[address] [address] Robson Viveros MD Medication Refill 12/12/2024 Refill [facility] [address] [place] [address] Arlin Roman APRN Medication Refill 11/30/2024 Refill [facility] [facility] [address] [place] [address] Arlin Roman APRN Medication Refill 11/30/2024 Refill [facility] [address] [place] [address] Maylin Solares DO Medication Refill 11/23/2024 Specialty Pharmacy [facility] [address] [place] [address] Flakita Stevens [facility] Hyperlipidemia Management (Repatha 140 mg) 11/16/2024 Refill [facility] [place] [facility] [address] [place] [address] Arlin Roman APRN Medication Refill 11/15/2024 10:20 AM EDT Office Visit [address] [place] [address] Robson Viveros MD Dyslipidemia associated with type 2 diabetes mellitus (HCC) (Primary Dx); Hypothyroidism, unspecified type; Vitamin D deficiency 11/11/2024 6:59 AM EDT - 11/11/2024 11:59 PM EDT Hospital Encounter [facility] [address] [place] [address] Dyslipidemia associated with type 2 diabetes mellitus (HCC); Vitamin D deficiency Discharge Disposition: Home or Self Care 11/11/2024 Travel 10/26/2024 Specialty Pharmacy [facility] [address] [place] [id number] Libra Joy, [facility] Hyperlipidemia Management (Repatha) 10/21/2024 Refill [facility] [address] [place] [address] Arlin Roman APRN Medication Refill from Last 3 Months Immunizations Immunization Administration Dates Next Due Influenza Patient Reported 05/26/2020,03/26/2019 Influenza Seasonal Injectable PF 04/30/2024 Influenza Vaccine Quadrivalent PF 04/15/2023, Pneumococcal Conjugate Vaccine 13 Valent 016 Pneumococcal Polysaccharide 23 Valent 06/12/2020 Tdap 04/30/2024,03/08/2022 Surgical History Surgery Date Site/Laterality Comments HYSTERECTOMY TONSILLECTOMY CHOLECYSTECTOMY SECTION 2 STOMACH SURGERY vulvulas HYSTERECTOMY 04/08/2011 Bilateral DAVINCI ROBOTIC TOTAL HYSTERECTOMY - SCIP performed by MOE GUILLEN at [facility] MAIN OR CORONARY ANGIOPLASTY WITH STENT PLACEMENT 10/13/2015 - 11/11/2015 OVARY REMOVAL 07/14/2010 - 07/13/2011 PELVIC LAPAROSCOPY 07/14/2010 - 07/13/2011 COLON SURGERY tumor and 4 inches of colon removed CARPAL TUNNEL RELEASE 06/30/2018 Right right carpal tunnel release; Surgeon: Mary Jo Cleaning MD; [facility] Service: Hand SOFT TISSUE BIOPSY 10/04/2024 Left excision of left arm mass; Surgeon: Onelia Johnson MD; [facility]; Service: General Medical History Medical History Date Comments Hypertension Heartburn Thyroid disease Anxiety Back ache Depression Heart attack ([facility]) 10/2015 Fibroid Tobacco abuse DM (diabetes mellitus) ([facility]) Hypothyroidism Overweight Kidney stones Dyslipidemia associated with type 2 diabetes leroy litus ([facility]) 11/20/2018 CAD (coronary artery disease) GERD (gastroesophageal reflux disease) Migraine Arthritis Family History Medical History Relation Name Comments Diabetes Brother RADHA WHITE Heart Attack Brother RADHA WHITE age 47 High Blood Pressure Brother RADHA WHITE High Cholesterol Brother RADHA WHITE Stroke Brother RADHA WHITE Urolithiasis Brother RADHA WHITE No Known Problems Daughter Diabetes Father NATHALIE WHITE Heart Attack Father NATHALIE WHITE age 45 Heart Disease Father NATHALIE WHITE Heart Failure Father NATHALIE WHITE High Blood Pressure Father NATHALIE WHITE Heart Disease Maternal Grandfather SONIA COULTERAS ED Cancer Maternal Grandmother SONIA STANLEY Arthritis Mother SONIA PENNINGTON Diabetes Mother SONIA PENNINGTON Heart Disease Mother SONIA PENNINGTON age 55 High Blood Pressure Mother SONIA PENNINGTON High Cholesterol Mother SONIA PENNINGTON Hypertension Mother SONIA PENNINGTON Thyroid Disease Mother SONIA PENNINGTON Urolithiasis Mother SONIA PENNINGTON Kidney Disease Paternal Uncle MATTHEW WHITE No Known Problems Son Anesth Problems Neg Hx Glaucoma Neg Hx Macular Degen Neg Hx Relation Name Status Comments Brother RADHA WHITE Alive Daughter Alive Father NATHALIE WHITE Maternal Grandfather SONIA STANLEY Maternal Grandmother SONIA STANLEY Alive Mother SONIA PENNINGTON Alive Paternal Grandfather Paternal Grandmother Paternal Uncle MATTHEW WHITE Son Alive Social History Tobacco Use Types Packs/Day Years [...] file Not on file Not on file Obstetrics History Para Term AB IAB SAB Ectopic Multiple Livin g Live Births 2 2 2 Date Outcome GA Total Labor Labor/2nd/3rd Weight Sex Type Anes PTL Uzma A1 A5 Name Clin Para CS-Clas sical Para Last Filed Vital Signs Vital Sign Reading Time Taken Comments Blood Pressure 122/87 11/15/2024 10:12 AM EDT Pulse 87 11/15/2024 10:12 AM EDT Temperature 36.7 C (98 F) 10/08/2024 1:19 PM EDT Respiratory Rate 18 10/08/2024 1:19 PM EDT Oxygen Saturation 94% 10/08/2024 1:19 PM EDT Inhaled Oxygen Concentration - - Weight 91.6 kg (202 lb) 11/15/2024 10:12 AM EDT Height 177.8 cm (5' 10 ) 11/15/2024 10:12 AM EDT Body Mass Index 28.98 11/15/2024 10:12 AM EDT Plan of Treatment Upcoming Encounters Date Type Department Care Team (Late st Contact Info) Description 04/21/2025 2:30 PM EDT Office Visit [facility] [place] [phone] Javier Bhatia MD [address] [place] [address] [address] [place], [place] [phone] 05/19/2025 9:50 AM EST Office Visit [facility] [place] [address] [facility] [address] [place] [address] Robson Viveros MD [address] [facility] [address] [place] [phone] Health Maintenance Due Date Last Done Comments Hepatitis B Vaccine (1 of 3 - 19+ 3-dose series) 1994 Cologuard 01/27/2020 Colon Cancer Screening 01/27/2020 Colonoscopy 01/27/2020 FIT 01/27/2020 Sigmoidoscopy 01/27/2020 Virtual Colonography 01/27/2020 COVID-19 Vaccine ( season) 2024 Diabetic Eye Exam 12/26/2024 12/26/2022, , 10/28/2020 Influenza Vaccine (#1) 2025 , 04/15/2023, 05/26/2020, Additional history exists Annual Wellness Exam 04/30/2025 04/30/2024, 03/08/2014 (Not Entered) Hemoglobin A1c 05/14/2025 11/11/2024, 04/13, 11/11/2023, Additional history exists Pneumococcal Vaccine 0-49 (3 of 3 - PCV20 or PCV21) 06/12/2025 06/12/2020, 11/28/2015 Kidney Health: eGFR 11/11/2025 11/11/2024, 04/30/2024, 11/11/2023, Additional history exists Kidney Health: uACR 11/11/2025 11/11/2024, 04/30/2024, 11/11/2023, Additional history exists Lipids 11/11/2025 11/11/2024, 04/13, 11/11/2023, Additional history exists Breast Cancer Screening 07/01/2026 07/01/20 24, 06/09/2023, 06/08/2007, Additional history exists DTaP/TDaP/Td (3 - Td or Tdap) 04/30/2034 04/30/2024, 03/08/2022 Meningococcal B Vaccine Aged Out Sarah ledezma eligible based on patient's age to complete this topic Goals Goal Patient Goal Type Associated Problems [...] Component 5.3( 6:59 AM EDT) Nicole [employer] Implanted Type Area House Fellow Device Identifier Shelf Expiration Date Model / Serial / Lot Stent Xience Alpine Drug Eluting 3.0mm X 28mm - [id number] Implanted:Qty: 1 on 11/07/2015 by Javier Bhatia MD at [facility]:VASC DEV [id number] / / [id number] Procedures Procedure Name Priority Date/Time Associated Diagnosis Comments THYROID STIMULATING HORMONE Routine 11/11/2024 6:59 AM EDT Dyslipidemia associated with type 2 diabetes mellitus (HCC) LIPID PANEL REFLEX Routine 11/11/2024 6: 59 AM EDT Dyslipidemia associated with type 2 diabetes mellitus (HCC) VITAMIN B12 LEVEL Routine 11/11/2024 6:5 9 AM EDT Dyslipidemia associated with type 2 diabetes mellitus (HCC) VITAMIN D 25 HYDROXY Routine 11/11/2024 6:59 AM EDT Vitamin D deficiency URIC ACID Routine 11/11/2024 6:59 AM EDT Dyslipidemia associated with type 2 diabetes mellitus (HCC) MICROALBUMIN/CREATININ E RATIO URINE Routine 11/11/2024 6:59 AM EDT Dyslipidemia associated with type 2 diabetes mellitus (HCC) HEMOGLOBIN A1C Routine 11/11/2024 6:59 AM EDT Dyslipidemia associated with type 2 diabetes mellitus (HCC) COMPREHENSIVE METABOLIC PANEL Routine 11/11/2024 6:59 AM EDT Dyslipidemia associated with type 2 diabetes mellitus (HCC) C-REACTIVE PROTEIN Routine 11/11/2024 6: 59 AM EDT Dyslipidemia associated with type 2 diabetes mellitus (HCC) MM MAMMO DIGITAL YADI SCREEN BILAT Routine 07/01/2024 2:49 PM EST Visit for screening mammogram HM DIABETES EYE EXAM Routine 10/28/2020 from Last 3 Months or Most Recently Relevant to Health Maintenance Results * (ABNORMAL) LIPID PANEL REFLEX (11/11/2024 6:59 AM EDT) Cholesterol 90 <200 mg/dL 11/11/2024 10:02 AM EDT [facility] Comment: < 200 Desirable 200 - 239 Borderline High >= 240 High Triglyceride 206(H) <150 mg/dL 11/11/2024 10:02 AM EDT [facility] Comment: < 150 Normal 150 - 199 Borderline High 200 - 499 High >= 500 Very High HDL 34(L) >=40 mg/dL 11/11/2024 10:02 AM EDT [facility] Comment: > 60 Optimal 40 - 60 Acceptable < 40 Low LDL Calculated 24 <100 mg/dL 11/11/2024 10:02 AM EDT [facility] Comment: < 100 Optimal 100 - 129 Near or above optimal 130 - 159 Borderline High 160 - 189 High >= 190 Very High The National Institutes of Health (NIH) equation is used for all lipid panels that report calculated LDL (LDL-C). Non-HDL-C Calculated 56 <=129 mg/dL 11/11/2024 10:02 AM EDT [facility] Comment: <130 Desirable 130-159 Above Desirable 160-189 Borderline High 190-219 High >= 220 Very High Fasting Specimen? Yes None 025 10:02 AM EDT [facility] [place] Blood VENOUS BLOOD / Unknown Venipuncture / Unknown 11/11/2024 6:59 AM EDT 11/11/2024 7:00 AM EDT Robson Viveros MD CHEMISTRY ORDERABLES Final Resu lt Performing Organization Address [facility] de Phone Number [facility] , [place] [address] * VITAMIN D 25 HYDROXY (11/11/2024 6:59 AM EDT) Vit D 25 OH 111.0 30.0 - 150.0 ng/mL 11/11/2024 10:27 AM EDT [facility] Comment: Preferred: >= 30 ng/mL Insufficient: 21-29 ng/mL Deficient <= 20 ng/mL Possible Toxicity: >150 ng/mL Samples should not be taken from patients receiving therapy with high biotin doses (i.e. > 5 mg/day) until at least 8 hours following the last biotin administration. Blood VENOUS BLOOD / Unknown Venipuncture / Unknown 11/11/2024 6:59 AM EDT 11/11/2024 7:00 AM EDT Robson Viveros MD CHEMISTRY ORDERABLES Final Resu lt Performing Organization Address City/[facility] de Phone Number [facility] , [facility] [place] [address] * MICROALBUMIN/CREATININE RATIO URINE (11/11/2024 6:59 AM EDT) Urine Microalb 12.0 mg/L 11/11/2024 11:37 AM EDT [facility] Urine Creatinine 91.4 mg/dL 11/11/2024 11:37 AM EDT [facility] Ur Microalb/Creat 13 0 - 30 mg/g 11/11/2024 11:[address] [facility] Urine STRUCTURE OF URINARY TRACT PROPER / Unknown 11/11/2024 6:59 AM EDT 11/11/2024 7:00 AM EDT Robson Viveros MD URINE ORDERABLES Final Result Performing Organization Address City/[facility]/ZIP Co de Phone Number [facility] [address] [facility] , [place] [address] [facility] [address] [place] [address] * (ABNORMAL) C-REACTIVE PROTEIN (11/11/2024 6:59 AM EDT) CRP 5.86(H) <=5.00 mg/L 11/11/2024 10:02 AM EDT [facility] Blood VENOUS BLOOD / Unknown Venipuncture / Unknown 11/11/2024 6:59 AM EDT 11/11/2024 7:00 AM EDT Robson Viveros MD CHEMISTRY ORDERABLES Final Resu lt Performing Organization Address [facility] Co de Phone Number [facility] [address] [facility] , [address] [place] [phone] * URIC ACID (11/11/2024 6:59 AM EDT) Uric Acid 3.1 2.4 - 5.7 mg/dL 11/11/2024 10:02 AM EDT [facility] Blood VENOUS BLOOD / Unknown Venipuncture / Unknown 11/11/2024 6:59 AM EDT 11/11/2024 7:00 AM EDT Robson Viveros MD CHEMISTRY ORDERABLES Final Resu lt [facility] [address] [facility] , [address] [place] [phone] * THYROID STIMULATING HORMONE (11/11/2024 6:59 AM EDT) TSH 0.707 0.270 - 4.200 mcIU/mL 11/11/2024 10:02 AM EDT [facility] Blood VENOUS BLOOD / Unknown Venipuncture / Unknown 11/11/2024 6:59 AM EDT 11/11/2024 7:00 AM EDT Narrative [facility] - 11/11/2024 10:02 AM EDT Ingestion of tye doses of biotin (>5 mg/day) taken within 8 hours of drawing blood sample can interfere with this immunoassay test. Robson Viveros MD CHEMISTRY ORDERABLES Final Resu lt Performing Organization Address [facility]/ZIP Co de Phone Number [facility] [address] , [place] [address] * HEMOGLOBIN A1C (11/11/2024 6:59 AM EDT) Hgb A1C 5.3 4.2 - 5.6 % 11/11/2024 11:28 AM EDT [facility] Est. Avg Glucose 105 mg/dL 11/11/2024 11:28 AM EDT [facility] Blood VENOUS BLOOD / Unknown Venipuncture / Unknown 11/11/2024 6:59 AM EDT 11/11/2024 7:00 AM EDT Narrative [facility] - 11/11/2024 11:28 AM EDT REFERENCE RANGE: Normal: 4.0-5.6% Pre-diabetes: 5.7-6.4% Provisional diagnosis of diabetes: >6.4% Hgb F>10% and anything which shortens red cell survival, such as hemolytic anemia, or unstable hemoglobin variants such as HbSS, HbSC, or HbCC, will lower the HbA1c value associated with a given level of glycemic control. Robson Viveros MD CHEMISTRY ORDERABLES Final Resu lt Performing Organization Address City/[facility]/ZIP Co de Phone Number [facility] [address] [facility] , [place] [address] * (ABNORMAL) VITAMIN B12 LEVEL (11/11/2024 6:59 AM EDT) Vitamin B12 >1,600(H) 232 - 1,245 pg/mL 11/11/2024 10:27 AM EDT [facility] Blood VENOUS BLOOD / Unknown Venipuncture / Unknown 11/11/2024 6:59 AM EDT 11/11/2024 7:00 AM EDT Narrative [facility] - 11/11/2024 10:27 AM EDT Ingestion of tye doses of biotin (>5 mg/day) taken within 8 hours of drawing blood sample can interfere with this immunoassay test. Robson Viveros MD CHEMISTRY ORDERABLES Final Resu lt [facility] [address] [facility] , [address] [place] [phone] * (ABNORMAL) COMPREHENSIVE METABOLIC PANEL (11/11/2024 6:59 AM EDT) Pathologist [facility] Sodium 143 136 - 145 mmol/L 11/11/2024 10:02 AM EDT [facility] Potassium 4.6 3.5 - 5.0 mmol/L 11/11/2024 10:02 AM EDT [facility] Chloride 105 98 - 107 mmol/L 11/11/2024 10:02 AM EDT [facility] Total CO2 29 22 - 29 mmol/L 11/11/2024 10:02 AM EDT [facility] Anion Gap 9 7 - 16 mmol/L 11/11/2024 10:02 AM EDT [facility] Calcium 9.7 8.6 - 10.4 mg/dL 11/11/2024 10:02 AM EDT [facility] Glucose Lvl 139(H) 70 - 99 mg/dL 11/11/2024 10:02 AM EDT [facility] BUN 11 6 - 20 mg/dL 11/11/2024 10:02 AM EDT [facility] Creatinine 0.67 0.51 - 1.30 mg/dL 11/11/2024 10:02 AM EDT [facility] Albumin 4.3 3.5 - 5.2 gm/dL 11/11/2024 10:02 AM EDT [facility] Total Protein 6.9 6.4 - 8.3 gm/dL 11/11/2024 10:02 AM EDT [facility], [facility] Bili Total 0.5 0.2 - 1.3 mg/dL 11/11/2024 10:02 AM EDT [facility] ALT 16 <=41 U/L 11/11/2024 10:02 AM EDT [facility] AST 23 <=40 U/L 11/11/2024 10:02 AM EDT [facility] Alk Phos 184(H) 36 - 123 U/L 11/11/2024 10:02 AM EDT [facility] eGFR (CKD-EPIcr 2020) 107 >=60 mL/min/1.7 3 m2 11/11/2024 10:02 AM EDT [facility] Comment:Estimated GFR was ca lculated using the CKD-EPIcr (2020) equation refit without race. The equation is recommended by the National Kid[employer] - [employer] [place] Society of Nephrology Task Force. Blood VENOUS BLOOD / Unknown Venipuncture / Unknown 11/11/2024 6:59 AM EDT 11/11/2024 7:00 AM EDT Robson Viveros MD CHEMISTRY ORDERABLES Final Resu lt [facility] [address] [facility] , [place] [address] * MM MAMMO DIGITAL YADI SCREEN BILAT (07/01/2024 2:49 PM EST) Anatomical Region Laterality Modality Breast Bilateral Mammography 07/01/2024 2:49 PM EST Impressions 07/02/2024 11:08 AM EST Negative ([id number]) RECOMMENDATION: Routine Screening Mammogram in 1 Year Bilateral No additional recommendation No additional laterality COMMENTS: Narrative 07/02/2024 11:08 AM EST EXAM: MM MAMMO DIGITAL YADI SCREEN BILAT EXAM DATE: 07/01/2024 2:49 PM INDICATION: Z12.31-Encounter for screening mammogram for malignant neoplasm of [id number] COMPARISON STUDIES: Compared with prior studies the most recent being 06/09/2023 MM MAMMO DIGITAL YADI SCREEN BILAT at [facility] TISSUE DENSITY: There are scattered areas of fibroglandular density. FINDINGS: No mammographic evidence of malignancy. Procedure Note Carmine Rose III, MD - 07/02/2024 EXAM: MM MAMMO DIGITAL YADI SCREEN BILAT EXAM DATE: 07/01/2024 2:49 PM INDICATION: Z12.31-Encounter for screening mammogram for malignantneoplasm of [id number]-CM COMPARISON STUDIES: Compared with prior studies the most recent being 06/09/2023 MM MAMMO DIGITAL YADI SCREEN BILAT at [facility] TISSUE DENSITY: There are scattered areas of fibroglandular density. FINDINGS: No mammographic evidence of malignancy. IMPRESSION: Negative ([id number]) RECOMMENDATION: Routine Screening Mammogram in 1 Year Bilateral No additional recommendation No additional laterality COMMENTS: Arlin Roman [facility] MAMMOGRAPHY ORDERABLES Final Result * DIABETES EYE EXAM (10/28/2020) Left Diabetic Retinopathy Not Present Present/Not Present SEP OFFICE Right Diabetic Retinopathy Not Present Present/Not Present SEP OFFICE Robson Viveros MD HEALTH MAINTENANCE Final Result SEP OFFICE from Last 3 Months or Most Recently Relevant to Health Maintenance Insurance ASIA PPO ASIA PPO [place] PPO [place] PPO Advance Directives For more information, please contact: [phone] * Full Code (Latest Code Status on File) Date Activated Date Inactivated Comments 11/09/2015 8:53 AM 11/09/2015 2:42 PM Care Teams Dairy Manufacturing Technologist Relationship Specialty Start Date End Date Arlin Roman APRN [address] [place] [address] PCP - General Nurse Practitioner-Family 03/08/22
--- OUTSIDE RECORDS SUMMARY | 2025-01-19 13:18 | XMS_ITS | Encounter Summary ---
Author Organization [facility] Address [facility] [place] [address] Care Team Providers Care Fish And Wildlife Warden Name Role Phone Arlin Roman APRN Primary Care Provider Reason for Visit * Reason Onset Date Comments Medication Refill 11/30/2024 Encounter Details Date Type Department Care Team (Late st Contact Info) Description 11/30/2024 Refill [facility] [address] [place] [address] Maylin Solares DO [address] [place] [address] Medication Refill Social History Tobacco Use [...] Refills Last Filled Start Date End Date fluticasone propionate (FLONASE) 50 mcg/actuation Nasl [place], SuspensionIndicatio ns:Head congestion 1 [place] by Nasal route daily. 1 Each 2 11/30/2024 01/11/2025 documented in this encounter Plan of Treatment Upcoming Encounters Date Type Department Care Team (Late st Contact Info) Description 04/21/2025 2:30 PM EDT [place] [address] Javier Bhatia MD [address] [facility] [place] [address] 05/19/2025 9:50 AM EST Office Visit [facility] [place] [address] [facility] [address] [place] [address] Robson Viveros MD [address] [facility] [address] [place] [address] documented as of this encounter Goals Goal Patient Goal Type Associated Problems Recent Progress Patient-Stated? Author Blood Pressure < 140/90 Blood Pressure 122/87(2024 10:12 AM EDT) Nicole Wang BMI (Calculated) < 30 General 29(11/15/2024 10:12 AM EDT) Nicole Wang Maintain a healthy diet, exercise regularly and maintain an ideal body weight General No Nicole Cadrona Stay Tobacco Free Lifestyle Nicole Wang HEMOGLOBIN A1C < 7.0 Result Component 5.3( 6:59 AM EDT) Nicole Wang documented as of this encounter Visit Diagnoses Diagnosis Head congestion Other diseases of nasal cavity and sinuses documented in this encounter Discontinued Medications Medication Sig Discontinue Reason Start Date End Da te fluticasone propionate (FLONASE) 50 mcg/actuation Nasl [place], SuspensionIndications:Hea d congestion 1 [place] by Nasal route daily. Reorder 04/15/2022 11/30/2024 documented as of this encounter Care Teams Fish And Wildlife Warden Relationship Specialty Start Date End Date Arlin Roman APRN [address] [place] [address] PCP - General Nurse Practitioner-Family 03/08/22 documented as of this encounter
--- OUTSIDE RECORDS SUMMARY | 2025-01-19 13:18 | XMS_ITS | Encounter Summary ---
Author Organization [facility] [address] Care Team Providers Care Treating Machine Operator Name Role Phone Arlin Roman APRN Primary Care Provider Reason for Visit * Reason Comments Medication Refill Encounter Details Date Type Department Care Team (Late st Contact Info) Description 12/12/2024 Refill [facility] [address] [facility] [address] [place] [address] Robson Viveros MD [address] [facility] [address] [place] [address] Medication Refill Social History Tobacco [...] encounter Miscellaneous Notes * Telephone Encounter - Dipika Lara CPhT - 12/13/2024 12:17 PM EDT Levothyroxine 175 Refill requested too soon. Refill denied. Last sent on 11/15/24 for a 96 day supply with 3 refills. Pt notified via [employer] if active. documented in this encounter Plan of Treatment Upcoming Encounters Date Type Department Care Team (Late st Contact Info) Description 04/21/2025 2:30 PM EDT Office Visit [facility] [address] [address] Javier Bhatia MD [address] [place] [address] [place] [address] 05/19/2025 9:50 AM EST Office [facility] [place] [address] [facility] [address] [place] [address] Robson Viveros MD [address] [address] documented as of this encounter Goals Goal Patient Goal Type Associated Problems Recent Progress Patient-Stated? Author Blood Pressure < 140/90 Blood Pressure 122/87(2024 10:12 AM EDT) No Nicole Cardona BMI (Calculated) < 30 General 29(11/15/2024 10:12 AM EDT) No Nicole Cardona Maintain a healthy diet, exercise regularly and maintain an ideal body weight General No Nicole Cardona Stay Tobacco Free Lifestyle No Nicole Cardona HEMOGLOBIN A1C < 7.0 Result Component 5.3( 6:59 AM EDT) No Nicole Cardona documented as of this encounter Visit Diagnoses Diagnosis Hypothyroidism, unspecified type documented in this encounter Care Teams Treating Machine Operator Relationship Specialty Start Date End Date Arlin Roman APRN [address] [place] [address] PCP - General Nurse Practitioner-Family 03/08/22 documented as of this encounter
--- OUTSIDE RECORDS SUMMARY | 2025-01-19 13:18 | XMS_ITS | Encounter Summary ---
Author Organization [place] [address] Care Team Providers Care News Library Director Name Role Phone Arlin Roman APRN Primary Care Provider Reason for Visit * Reason Comments Pharmacy Hyperlipidemia Management [facility] Encounter Details Date Type Department Care Team (Latest Contact Info) Description 01/13/2025 Specialty Pharmacy [facility] [address] [place] [address] Nita Cantu CPhT Pharmacy Hyperlipidemia Management (Repatha) Social History Tobacco Use Types Packs/Day Years [...] Spencer Purcell CCMA documented in this encounter Progress Notes * Nita Cantu CPhT - 01/13/2025 11:25 AM EDT [facility] Patient placed web refill request but its refill too soon until 01/18 Sent [employer] message * Flakita Stevens CPhT - 01/13/2025 11:25 AM EDT Specialty Pharmacy Refill Coordination Note Contacted Sonia Arevalo today regarding refills of Repatha 140 mg- $0 copay 28 d/s -Ins allows 30 d/s. Sent [employer] message. Patient informed of copay. * Nita Cantu CPhT - 01/13/2025 11:25 AM EDT Specialty Pharmacy Refill Coordination Note Contacted Sonia Arevalo today regarding refills of Repatha. Medication to be delivered by [facility] on 01/31. Copay amount: $0 Sent [employer] message. Will set f/u for 01/25 to re process for delivery documented in this encounter Plan of Treatment Upcoming Encounters Date Type Department Care Team (Late st Contact Info) Description 04/21/2025 2:30 PM EDT [place] [address] Javier Bhatia MD [address] [place] [address] 05/19/2025 9:50 AM EST [facility] [place] [address] [facility] [address] [place] [address] Robson Viveros MD [address] [facility] [address] [place] [address] documented as of this encounter Goals [...] on filedocumented in this encounter Care Teams News Library Director Relationship Specialty Start Date End Date Arlin Roman APRN [address] [place] [address] PCP - General Nurse Practitioner-Family 03/08/22 documented as of this encounter
[2025-01-19 13:19] VITALS: BP 120/83; PULSE 86; RESP 14; O2SAT 99; BMI 28.7
--- OUTSIDE RECORDS SUMMARY | 2025-01-19 13:19 | XMS_ITS | Encounter Summary ---
Author Organization 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 PLACE 1 TABLET UNDER THE TONGUE AND ALLOW TO DISSOLVE NEEDED FOR CHEST PAIN 25 Tablet 1 12/21/2024 5 documented in this encounter Plan of Treatment Upcoming Encounters Date Type Department Care Team (Late st Contact Info) Description 04/21/2025 2:30 PM EDT Office Visit [facility] [address] [address] Javier Bhatia MD [address] [place] [address] [place] [address] 05/19/2025 9:50 AM EST Office Visit [facility] [address] [facility] [address] [place] [address] Robson Viveros MD [address] [facility] [address] [place] [address] documented as of this encounter [...] involving cardiovascular system 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 10/08/2024 12/21/2024 documented as of this encounter Care Teams Ferry Operator Relationship Specialty Start Date End Date Arlin Roman APRN [address] [place] [address] PCP - General Nurse Practitioner-Family 8/26/22 documented as of this encounter
--- OUTSIDE RECORDS SUMMARY | 2025-01-19 13:19 | XMS_ITS | Encounter Summary ---
Author Organization [place] [address] Care Team Providers Care Underwriting Technician Name Role Phone Arlin Roman APRN Primary Care Provider [phone] Reason for Visit * Reason Comments Pharmacy Hyperlipidemia Management Repat marion Pharmacy Reassessment Encounter Details Date Type Department Care Team (Latest Contact Info) Description 12/24/2024 Specialty Pharmacy [facility] [address] [place] [address] Shania Yu [facility] Pharmacy Hyperlipidemia Management (Repatha); Pharmacy Reassessment Social History Tobacco Use Types Packs/Day Years [...] EDSpencer Vasquez CCMA documented in this encounter Patient Instructions * Attachments The following attachments cannot be sent through Care Everywhere. * Evolocumab (Uzbek) documented in this encounter Progress Notes * Shania Yu RPH - 12/24/2024 10:14 AM EDT Specialty Pharmacy - Hyperlipidemia Reassessment Tuyet Eufemia Sonia Arevalo is a 49 y.o. female contacted today regarding her reassessment of Repatha. No answer, left voicemail to call [phone], option 4. Shania Yu RPH Specialty Pharmacist * Phillip Harris [facility] - 12/24/2024 10:14 AM EDT Specialty Pharmacy - Hyperlipidemia Reassessment Sonia Arevalo is a 49 y.o. female contacted today regarding her reassessment of Repatha due to ASCVD. No answer, left voicemail to call [phone], option 4. Phillip Harris [facility] Specialty Pharmacist * Phillip Harris RP - 12/24/2024 10:14 AM EDT Specialty Pharmacy - Hyperlipidemia Reassessment Subjective Sonia Arevalo is a 49 y.o. female who is continuing specialty pharmacy service with evolocumab (Repatha) for ASHD. Other current HLD medications: None Side Effects: No Missed doses: No Medication Adherence What concerns does the patient have in regards to their medications: No concerns. Patient reported X missed doses in the last month: 0 Any gaps in refill history greater than 2 weeks in the last 3 months: no Demonstrates understanding of importance of adherence: yes Informant: patient Reliability of informant: reliable Provider-estimated medication adherence level: 90-100% Reasons for non-adherence: no problems identified Adherence tools used: calendar, cell phone Support network for adherence: healthcare provider Confirmed plan for next specialty medication refill: delivery by pharmacy Refills needed for supportive medications: not needed Adverse Effects *All other systems reviewed and are negative Objective QOL During the past week on a scale from zero to ten, has your condition affected your ability to perform your normal daily activities such as shopping, cooking, cleaning, walking up a flight of stairs, working?: 0 During the past week on a scale from zero to ten, to what extent has your condition interfered withyour normal social activities with family, friends, neighbors, or groups?: 0 During the past week on a scale from zero to ten, how much pain have you had because of your condition?: 0 Risk/ Status: Hysterectomy Test: No results found for: PREGTESTUR Lab Results Component Value Date LDLCALC 24 11/11/2024 LDLDIRECT 48 11/13/2020 HDL 34 (L) 11/11/2024 TRIG 206 (H) 11/11/2024 CHOLESTEROL 90 11/11/2024 CHOLESTEROL 90 04/30/2024 CHOLESTEROL 92 11/11/2023 Lab Results Component Value Date LDLCALC 24 11/11/2024 LDLCALC 24 04/30/2024 LDLCALC 19 11/11/2023 Lab Results Component Value Date LIPOA <6 11/17/2018 Lab Results Component Value Date APOLIPOPROTB 74 05/21/2019 Current Outpatient Medications - WARNING: List may be incomplete due to filtering Medication Sig Accu-Chek Guide Glucose Meter 1 Each by Misc.(Non-Drug; Combo Route) route 5 times daily. albuterol Inhale 2 Puffs into the lungs every 4 hours as needed for Wheezing. Alcohol Swabs Use to check glucose four times daily. ascorbic acid (vitamin C) Take 1,000 mg by mouth daily. aspirin Take 1 Tablet by mouth daily. Accu-Chek Guide test strips 1 Strip by Misc.(Non-Drug; Combo Route) route 5 times daily. Blood Sugar Diagnostic 1 Strip by Misc.(Non-Drug; Combo Route) route 4 times daily. Blood-Glucose Meter 1 Each by Misc.(Non-Drug; Combo Route) route continuous. carvediloL Take 1 Tablet by mouth 2 times daily (with meals). cetirizine Take 1 Tablet by mouth daily. Cholecalciferol (Vitamin D3) Take 1 Tablet by mouth daily. DULoxetine TAKE 1 CAPSULE TWICE DAILY empagliflozin Take 1 Tablet by mouth daily. estradioL Place 1 g vaginally three times a week. Repatha SureClick Subcutaneous (Inject under the skin) 1 mL every 14 days. fluticasone propionate 1 [place] by Nasal route daily. fUROsemide Take 1 Tablet by mouth daily. gabapentin Take 1 Tablet by mouth 3 times daily. Lancets Use to test blood sugars 5 times Lancets 1 Each by Misc.(Non-Drug; Combo Route) route 4 times daily. LEVOthyroxine Take [address] 1 Patch onto the skin every 12 hours. LORazepam Take 1 Tablet by mouth daily as needed for Anxiety. losartan Take 1 Tablet by mouth daily. montelukast TAKE 1 TABLET NIGHTLY MULTI-VITAMIN ORAL Take by mouth daily. AT hs nitroGLYCERIN PLACE 1 TABLET UNDER THE TONGUE AND ALLOW TO DISSOLVE NEEDED FOR CHEST PAIN nystatin Apply topically 2 times daily. pantoprazole Take 1 Tablet by mouth 2 times daily. Ozempic Subcutaneous (Inject under the skin) 2 mg once a week. traZODone Take 1 Tablet by mouth nightly. triamcinolone Apply topically 2 times daily. ZINC ORAL Take 1 Tablet by mouth daily. Assessment Hyperlipidemia: Patient was prescribed evolocumab (Repatha) 140mg SUBQ every 14 day(s). Effectiveness: LDL has decreased from 49 mg/dL to 24 mg/dL since initiation of therapy 2 years ago. Progress towards goals of therapy Prevent atherosclerotic cardiovascular event(s) - patient has not experienced ASCVD event since initiation of therapy As patient being treated for secondary ASCVD prevention for patients not at very high risk, LDL-C goal is >/= 50% reduction from baseline and absolute reduction to <70 mg/dL, patient has met LDL goal Indication, effectiveness, safety and convenience of her specialty medication(s) were reviewed today. Patient aware of cost and verified current address. Therapy reviewed and found to be appropriate and still warranted. Drug Interactions Drug interactions evaluated: yes Clinically relevant drug interactions identified: no Provided the patient with educational material regarding drug interactions: not applicable Plan Pharmacist does not recommend any changes to therapy. Patient to have medication delivered by [facility] on 01[facility]. Patient Counseling Counseled the patient on the following: doses and administration discussed, safe handling, storage,and disposal discussed, possible adverse effects and management discussed, possible drug and prescription drug interactions discussed, possible drug and OTC drug and food interactions discussed, lab m onitoring and follow-up discussed, therapeutic rationale discussed, cost of medications and cost implications discussed, adherence and missed doses discussed, pharmacy contact information discussed Clinical Assessment Follow-up: 12 month(s) Reviewed plan of care, expected outcomes, and goals of therapy with patient who verbalized understanding and is agreeable with plan. Phillip Harris RPH Specialty Pharmacist documented in this encounter Plan of Treatment Upcoming Encounters Date Type Department Care Team (Late st Contact Info) Description 04/21/2025 2:30 PM EDT [place] [address] Javier Bhatia MD [address] [facility] [address] 05/19/2025 9:50 AM EST Office Visit [facility] [place] [address] [facility] [address] [place] [address] Robson Viveros MD [address] [facility] [address] [place] [address] documented as of this encounter [...] on filedocumented in this encounter Care Teams Underwriting Technician Relationship Specialty Start Date End Date Arlin Roman APRN [address] [place] [address] PCP - General Nurse Practitioner-Family 03/08/22 documented as of this encounter
--- OUTSIDE RECORDS SUMMARY | 2025-01-19 13:19 | XMS_ITS | Encounter Summary ---
Author Organization [place] [address] Care Team Providers Care Director Talent Name Role Phone Arlin Roman APRN Primary Care Provider Reason for Visit * Reason Comments Pharmacy Hyperlipidemia Management Repat marion 140 mg Encounter Details Date Type Department Care Team (Latest Contact Info) Description 11/23/2024 Specialty Pharmacy [facility] [address] [place] [address] Flakita Stevens CPhT Pharmacy Hyperlipidemia Management (Repatha 140 mg) Social History Tobacco Use Types Packs/Day Years [...] documented in this encounter Progress Notes * Flakita Stevens CPhT - 11/23/2024 11:53 AM EDT Specialty Pharmacy Refill Coordination Note Contacted Sonia Arevalo today regarding refills of Repatha 140 mg- $0 copay 28 d/s -Ins allows 30 d/s. Sent [employer] message. Patient informed of copay. * Paula Godoy CPhT - 11/23/2024 11:53 AM EDT Specialty Pharmacy Refill Coordination Note Contacted Sonia hector regarding refills of Repatha. Medication to be delivered by [facility] on 12/02. Copay amount: $0 Spoke with patient. Patient informed of copay. * Leelee Moyer [facility] - 11/23/2024 11:53 AM EDT [facility] - Care Plan and Refill Review Refill questions and refill history verified. Last assessment 03/02/24. No reassessment needed at this time. Leelee Moyer [facility] Specialty Pharmacist documented in this encounter Plan of Treatment Upcoming Encounters Date Type Department Care Team (Late st Contact Info) Description 04/21/2025 2:30 PM EDT [place] [address] Javier Bhatia MD [address] [place] [address] [place] [address] 05/19/2025 9:50 AM EST [facility] [place] [address] [facility] [address] [place] [address] Robson Viveros MD [address] [id number] documented as of this encounter Goals Goal [...] on filedocumented in this encounter Care Teams Director Talent Relationship Specialty Start Date End Date Arlin Roman APRN [address] [place], [place] [address] PCP - General Nurse Practitioner-Family 03/08/22 documented as of this encounter
--- OUTSIDE RECORDS SUMMARY | 2025-01-19 13:19 | XMS_ITS | Encounter Summary ---
Author Organization [facility] Address [address] [place] [address] Care Team Providers Care Lyft Driver Name Role Phone Pablo Lebron MD Primary Care Provider [phone] Source Comments This information has been disclosed to you from confidential records protectfrom disclosure by state law. You shall make no further disclosure of thisinformation without the specific, written, and informed release of theindividual to whom it pertains, or as otherwise permitted by law. A generalauthorization for the release of medical or other information is not sufficientfor the purposes of the release of HIV test results or diagnoses. [id number] Health Encounter Details Date Type Department Care Team (Late st Contact Info) Description 09/25/2016 Orders Only [facility] [address] [place] [phone] Milena Conklin S Infection (Primary Dx) Social History Tobacco Use Types Packs/Day Years Used Date Smoking Tobacco: Former Cigarettes Q uit: 08/23/2011 Smokeless Tobacco: Never Alcohol Use Standard Drinks/Week Comments Yes 0 (1 standard drink = 0.6 oz pur e alcohol) Comments No Sex and Gender Information Value Date Recorded Sex Assigned at Not on file Legal Sex Female 4:24 PM EST Gender Identity Not on file Sexual Orientation Not on file documented as of this encounter Plan of Treatment Not on file documented as of this encounter Results * (ABNORMAL) Routine Culture plus Stain (09/25/2016 3:10 PM EDT) Gram Stain Result GRAM STAIN -- Few Polymorphonuclear Leukocytes Seen; [facility] Gram Stain Result Many Red Blood Cells Seen; [facility] Gram Stain Result Rare Gram Positive Cocci In Pairs; [facility] Culture Result Scant Growth(A) [facility] Culture Result Staph aureus, MRSA (Methicillin Resistant)(A) [facility] Culture Result See Previous Report for Susceptibility (Abdomenal Surgical Swab Collected on 09/25/2016 at 17:41)(A) [facility] Organism 2 Scant Growth [facility] Organism 2 Normal Skin Silke [facility] Organism 2 No Further Workup [facility] Swab (specimen) ABDOMEN / Unknown 017 3:10 PM EDT 09/25/2016 7:53 PM EDT Tiffani Bowens MD MICROBIOLOGY - GENERAL BASHIR BRITO Final Result [facility] [address] documented in this encounter Visit Diagnoses Diagnosis Infection- Primary Unspecified infectious and parasitic diseases documented in this encounter Additional Health Concerns Infection Onset Date Last Indicated Resolved Time MRSA Comment:09/25/2016: MRSA (+) Surgical Swab of abdomen 09/27/2016 09/27/2016 documented as of this encounter Care Teams Lyft Driver Relationship Specialty Start Date End Date Pablo Lebron MD [address] [place] [address] PCP - General Family Medicine 05/17/16 documented as of this encounter
--- OUTSIDE RECORDS SUMMARY | 2025-01-19 13:19 | XMS_ITS | Encounter Summary ---
Author Organization [place] [address] Care Team Providers Care Diabetes Solutions Specialist Name Role Phone Jovita Lebron Primary Care Provider Arlin Roman APRN Primary Care Provider [phone] Encounter Details Date Type Department Care Team (Late st Contact Info) Description 09/22/2008 Orders Only [facility] [address] [place] [address] Onelia Marvin MD [address] [place] [address] Social History Tobacco Use Types Packs/Day Years Used Date Smoking Tobacco: Never Assessed Comments Unknown Sex and Gender Information Value Date Recorded Sex Assigned at Not on file Legal Sex Female 2:00 AM EDT Gender Identity Not on file Sexual Orientation Not on file documented as of this encounter Plan of Treatment Upcoming Encounters Date Type Department Care Team (Late st Contact Info) Description 04/21/2025 2:30 PM EDT Office Visit [facility] [place] [address] [place], [place] [id number] Javier Bhatia MD [address] [place] [address] [address] [place], [place] [id number] 05/19/2025 9:50 AM EST Office Visit [facility] [address] [facility] [address] [place] [address] Robson Viveros MD [address] [facility] [address] [place] [address] documented as of this encounter Procedures Procedure Name Priority Date/Time Associated Diagnosis Comments NM CARDIOLOGY - HISTORICAL Routine 09/22/2008 12:00 AM EDT documented in this encounter Results * NM CARDIOLOGY - HISTORICAL (09/22/2008 12:00 AM EDT) Anatomical Region Laterality Modality Other 09/22/2008 Narrative 07/17/2011 1:34 AM EST NOTICE: This report was electronically copied on 08/31/2011 from historical data generated by a practice prior to that practice using [facility] for Medical Records. Performing Provider: OFELIA Booth Provider Result Type Result Stat Onelia Ruth MD IMG ECHO ORDERABLES Gin l Result documented in this encounter Visit Diagnoses Not on filedocumented in this encounter Additional Health Concerns Infection Onset Date Last Indicated Resolved Time R/O COVID-19 07/24/2020 07/24/2020 07/24/2020 10:5 2 PM EST COVID-19 08/28/2022 08/28/2022 09/17/2022 10:1 4 PM EST documented as of this encounter Care Teams Diabetes Solutions Specialist Relationship Specialty Start Date End Date Jovita Lebron [address] [facility] [address] [place] [address] PCP - General 05/29/10 03/07/22 Arlin Roman APRN [address] [place], [place] [address] PCP - General Nurse Practitioner-Family 03/08/22 documented as of this encounter
--- OUTSIDE RECORDS SUMMARY | 2025-01-19 13:19 | XMS_ITS ---
Author Organization Unknown Medications Medication Instructions Effective Dates (start - stop) Status methotrexate 2.5 MG Oral Tablet [id number]:00:00.000+00: 00 - Completed methotrexate 2.5 MG Oral Tablet 1632-26-72G95:00:00.000+00: 00 - Completed duloxetine 60 MG Delayed Rel ease Oral Capsule 2052-96-28E44:00:00.000+00: 00 - Completed levothyroxine sodium 0.175 M G Oral Tablet 9814-40-64V90:00:00.000+00: 00 - Completed benzonatate 200 MG Oral Capsule 2869-19-58T40:00:00.000+00: 00 - Completed [id number] 200 ACTUAT albuter ol 0.09 MG/ACTUAT Metered Dose Inhaler 9218-67-93J50:00:00.000 +00: 00 - Completed doxycycline hyclate 100 MG O ral Tablet 0411-59-62B82:00:00.000+00: 00 - Completed duloxetine 60 MG Delayed Rel ease Oral Capsule 6254-01-05F63:00:00.000+00: 00 - Completed duloxetine 60 MG Delayed Rel ease Oral Capsule 4310-80-87Z17:00:00.000+00: 00 - Completed levofloxacin 500 MG Oral Tablet 0114-40-24H73:00:00.000+00: 00 - Completed methotrexate 2.5 MG Oral Tablet 4780-25-07K85:00:00.000+00: 00 - Completed lorazepam 1 MG Oral Tablet :00:00.000+00: 00 - Completed duloxetine 60 MG Delayed Rel ease Oral Capsule 2226-22-86N69:00:00.000+00: 00 - Completed furosemide 40 MG Oral Tablet 09-15-22:00:00.000+00: 00 - Completed nitroglycerin 0.4 MG Subling ual Tablet 8575-89-51X68:00:00.000+00: 00 - Completed furosemide 40 MG Oral Tablet 08-21-14:00:00.000+00: 00 - Completed levothyroxine sodium 0.175 M G Oral Tablet 9747-10-32C84:00:00.000+00: 00 - Completed levothyroxine sodium 0.175 M G Oral Tablet 2842-34-64A79:00:00.000+00: 00 - Completed levothyroxine sodium 0.175 M G Oral Tablet 4337-10-68F50:00:00.000+00: 00 - Completed duloxetine 60 MG Delayed Rel ease Oral Capsule 4895-27-18S57:00:00.000+00: 00 - Completed lorazepam 1 MG Oral Tablet :00:00.000+00: 00 - Completed furosemide 40 MG Oral Tablet 08-23-18:00:00.000+00: 00 - Completed furosemide 40 MG Oral Tablet 08-25-21:00:00.000+00: 00 - Completed lorazepam 1 MG Oral Tablet :00:00.000+00: 00 - Completed 1 ML evolocumab 140 MG/ML Auto-Injector [Repatha] 4606-94-20M65:00:00.000+00: 00 - Completed levothyroxine sodium 0.175 M G Oral Tablet 8522-95-52H87:00:00.000+00: 00 - Completed hydroxyzine hydrochloride 25 MG Oral Tablet 4252-36-26H08:00:00.000+00: 00 - Completed duloxetine 60 MG Delayed Rel ease Oral Capsule 2084-76-15Z81:00:00.000+00: 00 - Completed gabapentin 600 MG Oral Tablet 02-02-03:00:00.000+00: 00 - Completed duloxetine 60 MG Delayed Rel ease Oral Capsule 7729-96-96A37:00:00.000+00: 00 - Completed fluconazole 150 MG Oral Tablet 259-21-60C92:00:00.000+00: 00 - Completed montelukast 10 MG Oral Tablet 04-04-19:00:00.000+00: 00 - Completed gabapentin 600 MG Oral Tablet 04-05-21:00:00.000+00: 00 - Completed gabapentin 600 MG Oral Tablet 20 04-03-26:00:00.000+00: 00 - Completed fluconazole 100 MG Oral Tablet 2 725-36-86G13:00:00.000+00: 00 - Completed gabapentin 600 MG Oral Tablet 20 05-08-06:00:00.000+00: 00 - Completed gabapentin 600 MG Oral Tablet 20 03-11-06:00:00.000+00: 00 - Completed montelukast 10 MG Oral Tablet 04-03-17:00:00.000+00: 00 - Completed montelukast 10 MG Oral Tablet 20 04-06-22:00:00.000+00: 00 - Completed montelukast 10 MG Oral Tablet 20 05-09-20:00:00.000+00: 00 - Completed carvedilol 6.25 MG Oral Tablet 2 992-76-70S53:00:00.000+00: 00 - Completed montelukast 10 MG Oral Tablet 04-05-21:00:00.000+00: 00 - Completed carvedilol 6.25 MG Oral Tablet 2 691-78-79H08:00:00.000+00: 00 - Completed montelukast 10 MG Oral Tablet 03-12-21:00:00.000+00: 00 - Completed gabapentin 600 MG Oral Tablet 05-09-05:00:00.000+00: 00 - Completed fluconazole 150 MG Oral Tablet 2 919-69-94L66:00:00.000+00: 00 - Completed gabapentin 600 MG Oral Tablet 03-12-09:00:00.000+00: 00 - Completed fluticasone propionate 0.05 MG/ACTUAT Metered Dose Nasal [place] 0874-68-09M83:00:00 .000+00: 00 - Completed carvedilol 6.25 MG Oral Tablet 2 143-18-12V60:00:00.000+00: 00 - Completed pantoprazole 20 MG Delayed R elease Oral Tablet 1341-27-12N12:00:00.000+00: 00 - Completed 1 ML alirocumab 75 MG/ML Auto-Injector [Praluent] 0992-97-10E22:00:00.000+00: 00 - Completed {6 (azithromycin 250 MG Oral Tablet) } Pack [id number]:00:00.000+00: 00 - Completed 1 ML alirocumab 75 MG/ML Auto-Injector [Praluent] 1494-16-34O73:00:00.000+00: 00 - Completed pantoprazole 40 MG Delayed R elease Oral Tablet 8820-36-58T11:00:00.000+00: 00 - Completed celecoxib 200 MG Oral Capsule 04-03-15:00:00.000+00: 00 - Completed carvedilol 6.25 MG Oral Tablet 2 182-43-24H35:00:00.000+00: 00 - Completed 1 ML alirocumab 75 MG/ML Auto-Injector [Praluent] 2865-33-79B35:00:00.000+00: 00 - Completed {6 (azithromycin 250 MG Oral Tablet) } Pack 4918-46-66Q93:00:00.000+00: 00 - Completed amoxicillin 875 MG Oral Tablet 2 321-55-23C88:00:00.000+00: 00 - Completed - 3970-81-80E19:00 :00.000+00: 00 - Completed pantoprazole 40 MG Delayed R elease Oral Tablet 6226-59-92R80:00:00.000+00: 00 - Completed pantoprazole 40 MG Delayed R elease Oral Tablet 0045-81-84V82:00:00.000+00: 00 - Completed pantoprazole 40 MG Delayed R elease Oral Tablet 3811-41-42A20:00:00.000+00: 00 - Completed benzonatate 200 MG Oral Capsule 9881-45-85R74:00:00.000+00: 00 - Completed losartan potassium 25 MG Ora l Tablet 1548-12-47K50:00:00.000+00: 00 - Completed levothyroxine sodium 0.175 M G Oral Tablet 9223-95-44U06:00:00.000+00: 00 - Completed methotrexate 2.5 MG Oral Tablet 6400-92-29J00:00:00.000+00: 00 - Completed azithromycin 250 MG Oral Tablet 4836-07-19E39:00:00.000+00: 00 - Completed prednisone 5 MG Oral Tablet 2022:00:00.000+00: 00 - Completed methotrexate 2.5 MG Oral Tablet 0819-30-64T52:00:00.000+00: 00 - Completed aspirin 81 MG Delayed Releas e Oral Tablet 9166-70-12K05:00:00.000+00: 00 - Completed prednisone 10 MG Oral Tablet 08-24-10:00:00.000+00: 00 - Completed rosuvastatin calcium 20 MG O ral Tablet 3929-93-62P84:00:00.000+00: 00 - Completed methotrexate 2.5 MG Oral Tablet 7310-64-73Z44:00:00.000+00: 00 - Completed prednisone 10 MG Oral Tablet 08-23-17:00:00.000+00: 00 - Completed losartan potassium 25 MG Ora l Tablet 1421-59-22P66:00:00.000+00: 00 - Completed rosuvastatin calcium 20 MG O ral Tablet 8290-21-78O20:00:00.000+00: 00 - Completed rosuvastatin calcium 20 MG O ral Tablet 1351-96-94G14:00:00.000+00: 00 - Completed amitriptyline hydrochloride 25 MG Oral Tablet 8976-71-08J25:00:00.000+00: 00 - Completed amitriptyline hydrochloride 25 MG Oral Tablet 5220-56-44R70:00:00.000+00: 00 - Completed losartan potassium 25 MG Ora l Tablet 9135-33-47I78:00:00.000+00: 00 - Completed prednisone 5 MG Oral Tablet 2022:00:00.000+00: 00 - Completed - 3051-41-20L36:00 :00.000+00: 00 - Completed methotrexate 2.5 MG Oral Tablet 7929-23-68W72:00:00.000+00: 00 - Completed losartan potassium 25 MG Ora l Tablet 4840-56-41S46:00:00.000+00: 00 - Completed prednisone 5 MG Oral Tablet 2021:00:00.000+00: 00 - Completed prednisone 10 MG Oral Tablet 09-14-04:00:00.000+00: 00 - Completed rosuvastatin calcium 20 MG O ral Tablet 5034-00-40C61:00:00.000+00: 00 - Completed empagliflozin 25 MG Oral Tab let [Jardiance] 6657-49-62Q91:00:00.000+00: 00 - Completed empagliflozin 25 MG Oral Tab let [Jardiance] 6891-96-54G21:00:00.000+00: 00 - Completed empagliflozin 25 MG Oral Tab let [Jardiance] 8609-56-16B20:00:00.000+00: 00 - Completed folic acid 1 MG Oral Tablet 2021:00:00.000+00: 00 - Completed empagliflozin 25 MG Oral Tab let [Jardiance] 6853-64-17N55:00:00.000+00: 00 - Completed empagliflozin 25 MG Oral Tab let [Jardiance] 0969-60-67B32:00:00.000+00: 00 - Completed empagliflozin 25 MG Oral Tab let [Jardiance] 0276-02-86W40:00:00.000+00: 00 - Completed empagliflozin 25 MG Oral Tab let [Jardiance] 1014-96-42L76:00:00.000+00: 00 - Completed empagliflozin 25 MG Oral Tab let [Jardiance] 8529-89-67Q96:00:00.000+00: 00 - Completed folic acid 1 MG Oral Tablet 2022:00:00.000+00: 00 - Completed empagliflozin 25 MG Oral Tab let [Jardiance] 9248-38-52G55:00:00.000+00: 00 - Completed folic acid 1 MG Oral Tablet 2022:00:00.000+00: 00 - Completed folic acid 1 MG Oral Tablet 2021:00:00.000+00: 00 - Completed - 0088-85-36C29:00 :00.000+00: 00 - Completed amitriptyline hydrochloride 25 MG Oral Tablet 9601-69-74W44:00:00.000+00: 00 - Completed empagliflozin 25 MG Oral Tab let [Jardiance] [id number]:00:00.000+00: 00 - Completed empagliflozin 25 MG Oral Tab let [Jardiance] [id number]:00:00.000+00: 00 - Completed aspirin 81 MG Delayed Releas e Oral Tablet 7502-27-55D66:00:00.000+00: 00 - Completed dextromethorphan hydrobromid e 3 MG/ML / promethazine hydrochloride 1.25 MG/ML Oral Solution 5227-51-28J91:00:00.000+00: 00 - Completed amoxicillin 875 MG / clavula kendell 125 MG Oral Tablet 8476-37-51R48:00:00.000+00: 00 - Completed Patient Care team information Name Category Status Period Participants - - Proposed period not known -
--- OUTSIDE RECORDS SUMMARY | 2025-01-19 13:19 | XMS_ITS | Encounter Summary ---
Author Organization [place] [address] Care Team Providers Care Public Information Officer Name Role Phone Arlin Roman APRN Primary Care Provider Reason for Visit * Reason Onset Date Comments Medication Refill 01/11/2025 Encounter Details Date Type Department Care Team (Late st Contact Info) Description 01/11/2025 Refill [facility] [address] [place] [address] Arlin Roman APRN [address] [place] [address] Medication Refill Social History Tobacco Use [...] End Date montelukast (SINGULAIR) 10 mg Oral TabletIndications:Ch ronic allergic rhinitis Take 1 Tablet by mouth nightly. 30 Tablet 01/11/2025 DULoxetine (CYMBALTA) 60 mg Oral Capsule, Delayed Release(E.C.)Indicat ions:Degenerative disc disease, lumbar,Fibromyalgia Take 1 Capsule by mouth 2 times daily. 60 Capsule 01/11/2025 lidocaine (LIDODERM) 5 % Top Adhesive Patch, MedicatedIndications :Degeneration of intervertebral disc of lumbar region with discogenic back pain Place 1 Patch onto the skin every 12 hours. 30 Patch 01/11/2025 estradioL (ESTRACE) 0.01 % (0.1 mg/gram) Vagl CreamIndications:Vag inal atrophy Place 1 g vaginally three times a week. 42.5 g 1 01/12/2025 nystatin (MYCOSTATIN) Top Cream Apply topically 2 times daily. 30 g 2 01/11/2025 losartan (COZAAR) 25 mg Oral TabletIndications:Es sential hypertension Take 1 Tablet by mouth daily. 90 Tablet 3 01/11/2025 carvediloL (COREG) 6.25 mg Oral TabletIndications:Es sential hypertension Take 1 Tablet by mouth 2 times daily (with meals). 180 Tablet 3 01/11/2025 traZODone (DESYREL) 50 mg Oral TabletIndications:In somnia, persistent Take 1 Tablet by mouth nightly. 90 Tablet 3 01/11/2025 aspirin 81 mg Oral Tablet, Delayed Release (E.C.)Indications:An nual physical exam Take 1 Tablet by mouth daily. 90 Tablet 3 01/11/2025 albuterol (PROVENTIL HFA;VENTOLIN HFA) 90 mcg/actuation Inhl HFA Aerosol InhalerIndications:B ronchitis Inhale 2 Puffs into the lungs every 4 hours as needed for Wheezing. 6.7 g 2 01/11/2025 fluticasone propionate (FLONASE) 50 mcg/actuation Nasl [place], SuspensionIndication s:Head congestion 1 [place] by Nasal route daily. 1 Each 2 01/11/2025 triamcinolone (KENALOG) 0.1 % Top CreamIndications:Sta sis dermatitis of both legs Apply topically 2 times daily. 80 g 2 01/11/2025 pantoprazole (PROTONIX) 40 mg Oral Tablet, Delayed Release (E.C.)Indications:Ga stroesophageal reflux disease without esophagitis Take 1 Tablet by mouth 2 times daily. 180 Tablet 3 01/11/2025 documented in this encounter Plan of Treatment Upcoming Encounters Date Type Department Care Team (Late st Contact Info) Description 04/21/2025 2:30 PM EDT Office Visit [facility] [address] [address] Javier Bhatia MD [address] [place] [address] [place] [address] 05/19/2025 9:50 AM EST Office Visit [facility] [place] [address] [facility] [address] [place] [address] Robson Viveros MD [address] [address] documented as of this encounter [...] as of this encounter Visit Diagnoses Diagnosis Gastroesophageal reflux disease without esophagitis Esophageal reflux Stasis dermatitis of both legs Varicose veins of lower extremities with inflammation Head congestion Other diseases of nasal cavity and sinuses Bronchitis Bronchitis, not specified as acute or chronic Annual physical exam Routine general medical examination at a health care facility Insomnia, persistent Persistent disorder of initiating or maintaining sleep Essential hypertension Unspecified essential hypertension Vaginal atrophy 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 Reorder 10/08/2024 01/11/2025 triamcinolone (KENALOG) 0.1 % Top CreamIndications:Stasis dermatitis of both legs Apply topically 2 times daily. Reorder 10/08/2024 01/11/2025 fluticasone propionate (FLONASE) 50 mcg/actuation Nasl [place], SuspensionIndications:Hea d congestion 1 [place] by Nasal route daily. Reorder 11/30/2024 01/11/2025 albuterol (PROVENTIL HFA;VENTOLIN HFA) 90 mcg/actuation Inhl HFA Aerosol InhalerIndications:Bronch itis Inhale 2 Puffs into the lungs every 4 hours as needed for Wheezing. Reorder 11/30/2024 01/11/2025 aspirin 81 mg Oral Tablet, Delayed Release (E.C.)Indications:Annual physical exam Take 1 Tablet by mouth daily. Reorder 11/30/2024 01/11/2025 traZODone (DESYREL) 50 mg Oral TabletIndications:Insomni a, persistent Take 1 Tablet by mouth nightly. Reorder 11/30/2024 01/11/2025 carvediloL (COREG) 6.25 mg Oral TabletIndications:Essenti al hypertension Take 1 Tablet by mouth 2 times daily (with meals). Reorder 11/30/2024 01/11/2025 losartan (COZAAR) 25 mg Oral TabletIndications:Essenti al hypertension Take 1 Tablet by mouth daily. Reorder 11/30/2024 01/11/2025 nystatin (MYCOSTATIN) Top Cream Apply topically 2 times daily. Reorder 11/30/2024 01/11/2025 estradioL (ESTRACE) 0.01 % (0.1 mg/gram) Vagl CreamIndications:Vaginal atrophy Place 1 g vaginally three times a week. Reorder 12/01/2024 01/11/2025 lidocaine (LIDODERM) 5 % Top Adhesive Patch, MedicatedIndications:Dege neration of intervertebral disc of lumbar region with discogenic back pain Place 1 Patch onto the skin every 12 hours. Reorder 11/30/2024 01/11/2025 DULoxetine (CYMBALTA) 60 mg Oral Capsule, Delayed Release(E.C.)Indications: Degenerative disc disease, lumbar,Fibromyalgia TAKE 1 CAPSULE TWICE DAILY Reorder 12/14/2024 01/11/2025 montelukast (SINGULAIR) 10 mg Oral TabletIndications:Chronic allergic rhinitis TAKE 1 TABLET NIGHTLY Reorder 12/14/2024 01/11/2025 documented as of this encounter Care Teams Public Information Officer Relationship Specialty Start Date End Date Arlin Roman APRN [address] [place], [place] [address] PCP - General Nurse Practitioner-Family 03/08/22 documented as of this encounter
--- OUTSIDE RECORDS SUMMARY | 2025-01-19 13:19 | XMS_ITS | Clinical Summary ---
Author Organization [facility] Address [address] [place] [address] Care Team Providers Care Infection Control Nurse Name Role Phone Pablo Lebron MD Primary Care Provider + [phone] Source Comments This information has been disclosed to you from confidential records protectedfrom disclosure by state law. You shall make no further disclosure of thisinformation without the specific, written, and informed release of theindividual to whom it pertains, or as otherwise permitted by law. A generalauthorization for the release of medical or other information is not sufficientfor the purposes of therelease of HIV test results or diagnoses. [id number] Allergies Active Allergy Reactions Criticality Noted Date Comments Mk Inhibitors Other (See Comments) Low 08/22/2016 cough Other Dermatitis,Rash Low 05/17/2016 Sugar sutures- infection Medications nitroGLYCERIN (NITROSTAT) 0.[address] 0.4 mg under the tongue every 5 minutes as needed for Chest pain. Dissolve 1 tablet under the tongue for chest pain. Repeat if needed every 5 minutes for 2 more doses. Active aspirin 81 MG EC tablet Take 81 mg by mouth daily. Active atorvastatin (LIPITOR) 40 MG tablet Take 40 mg by mouth every evening. Active carvedilol (COREG) 6.25 MG tablet Take 6.25 mg by mouth 2 times a day with meals. Active furosemide (LASIX) 40 MG tablet Take 40 mg by mouth daily. Active levothyroxine (SYNTHROID, LEVOTHROID) 137 MCG tablet Take 137 mcg by mouth daily. Active gabapentin (NEURONTIN) 600 MG tablet Take 600 mg by mouth 2 times a day. Active escitalopram oxalate (LEXAPRO) 10 MG tablet Take 10 mg by mouth daily. Active multivitamin (MULTIVITAMIN) tablet Take 1 tablet by mouth daily. Active cholecalciferol , vitamin D3, 1000 units tablet Take 2,000 Units by mouth daily. Active ondansetron (ZOFRAN) 4 MG tabletIndicatio ns:Prevention of Post-Operative Nausea and Vomiting Take 1 tablet (4 mg total) by mouth every 6 hours as needed for Nausea. Indications: Prevention of Post-Operative Nausea and Vomiting 20 tablet 0 7 Active pantoprazole (PROTONIX) 40 MG tablet Take 40 mg by mouth 2 times a day. 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 Hernadez 04/08/11 PORTER/BSO midline vertical d/t heavy bleeding and ovarian cysts. Path: Bilateral fallopian tubes and ovaries, excision: Bilateral ovaries with benign serous inclusion cysts. Follicular cysts and corpus luteal cysts. Benign bilateral fallopian tubes. Negative for cytologic atypia or malignancy. 2011 MMG: Normal 2013 Pap: Normal October 2015 C/o Wt. Gain of 53 lbs, hot flashes, & joint aches. KIM placement. 02/2016 Stopped Estrogen Patches 04/08/16 Started Progesterone Caps 200 mg 04/26/16 Estrogen: 102 TVUS: 5.5 cm mostly cystic mass sitting just above the vaginal cuff, this is not palpable on bimanual d/t body habitus nor is it palpable on rectovaginal exam. The mass has 4 septations and a small solid component and does have flow. CA 125: 8.6 05/09/16 TVUS: Better view of peripheral ovarian remnant. 06/17/16 TVUS: Mass has decreased from 5.5 to 3.5 and now 3 cm. Internal complexity appears with thicker septums but may be an artifact of reabsorption. 08/22/16 Laparoscopy, significant lysis of adhesions 09/02/16 MRI Pelvis: Status post hysterectomy. Hyperintense T2 signal lesions within the bilateral adnexa may represent small peritoneal inclusion cyst, remnant cyst within the round ligament, or ovarian remnants. 09/05/16 Ex lap-Terminal ileum, resection: Serosal adhesions with foreign body reaction and transmural injury. Left infundibial pelvic ligament, excision:Fibroadipose tissue, negative for neoplasm. Soft tissue, left pelvic sidewall nodule, excision: Fibroadipose tissue, negative for neoplasm. Right infundibial pelvic ligament, excision:Fibroadipose tissue, negative for neoplasm. 09/07/16-09/15/16 Admitted with SBO 09/25/16-09/29/16 Wound exploration and debridement 10/02/[address], doing well. RTC 3 weeks 10/23/16 Wound vac removed for inspection, healing well, continue x1 week then switch to [id number]. RTC 3 weeks. *Has been on vivelle-dot in past and had some symptom relief. Disposition: RTC in 3 months Pelvic mass 08/20/2016 Acquired hypothyroidism 05/17/2016 Depression 05/17/2016 Gastroesophageal reflux disease 05/17/2016 Hyperlipidemia 05/17/2016 Essential hypertension 05/17/2016 Coronary artery disease invo lving [place] heart without angina pectoris 05/17/2016 Ovarian mass 05/17/2016 Estrogen excess 05/17/2016 Immunizations Immunization Administration Dates Next Due Pneumococcal conjugate, 13-valent 11/28/2015 Family History Medical History Relation Comments Stroke Brother Coronary artery disease Father Heart attack Father Diabetes Mother Hypertension Mother Relation Status Comments Brother Alive Father Mother Alive Social History Tobacco Use Types Packs/Day Years Used Date Smoking Tobacco: Former Cigarettes Q uit: 08/23/2011 Smokeless Tobacco: Never Alcohol Use Standard Drinks/Week Comments No 0 (1 standard drink = 0.6 oz pur e alcohol) Comments No Sex and Gender Information Value Date Recorded Sex Assigned at Not on file Legal Sex Female 4:24 PM EST Gender Identity Not on file Sexual Orientation Not on file Last Filed Vital Signs Vital Sign Reading Time Taken Comments Blood Pressure 112/68 12/11/2016 1:14 PM EDT Pulse 90 12/11/2016 1:14 PM EDT Temperature 36.9 C (98.5 F) 12/11/2016 1:14 PM EDT Respiratory Rate 20 12/11/2016 1:14 PM EDT Oxygen Saturation 98% 12/11/2016 1:14 PM EDT Inhaled Oxygen Concentration 98% 12/11/2016 1 :14 PM EDT Weight 118.4 kg (261 lb) 12/11/2016 1:14 PM EDT Height 176.5 cm (5' 9.5 ) 11/26/2016 1:14 PM EDT Body Mass Index 37.99 11/26/2016 1:14 PM EDT Plan of Treatment Not on file Additional Health Concerns Infection Onset Date Last Indicated MRSA Comment:09/25/2016: MRSA (+) Surgical Swab of abdomen 09/27/2016 0 09/27/2016 Insurance BLUE ACCESS Advance Directives For more information, please contact: [phone] * Full Code (Latest Code Status on File) Date Activated Date Inactivated Comments 09/25/2016 6:08 PM 09/28/2016 6:35 PM * Full Code Date Activated Date Inactivated Comments 09/09/2016 9:58 PM 09/15/2016 2:09 PM * Full Code Date Activated Date Inactivated Comments 09/05/2016 12:25 PM 09/08/2016 6:11 PM * Full Code Date Activated Date Inactivated Comments 08/22/2016 11:41 AM 08/23/2016 12:03 PM Care Teams Infection Control Nurse Relationship Specialty Start Date End Date Pablo Lebron MD [address] [place] [address] [place] [address] PCP - General Family Medicine 05/17/16
--- OUTSIDE RECORDS SUMMARY | 2025-01-19 13:19 | XMS_ITS | Encounter Summary ---
Author Organization [facility] [address] Care Team Providers Care Waiter/Waitress Tourist Class Name Role Phone Arlin Roman APRN Primary Care Provider Reason for Visit * Reason Comments Medication Refill Encounter Details Date Type Department Care Team (Late st Contact Info) Description 01/11/2025 Refill [facility] Daenlle ASTUDILLO [address] [place] [address] Arlin Roman APRN [address] [place] [address] Medication Refill Social History Tobacco Use Types [...] encounter Miscellaneous Notes * Telephone Encounter - Misty Pimentel CPhT - 01/12/2025 12:03 PM EDT Duloxetine Duplicate refill request. This medication has already been approved within the last 7 days. Refill denied. Montelukast Duplicate refill request. This medication has already been approved within the last 7 days. Refill denied. documented in this encounter Plan of Treatment Upcoming Encounters Date Type Department Care Team (Late st Contact Info) Description 04/21/2025 2:30 PM EDT Office Visit [facility] [address] [address] Javier Bhatia MD [address] [place] [address] [place] [address] 05/19/2025 9:50 AM EST Office [facility] [place] [address] [facility] [address] [place] [address] Robson Viveros MD [address] [facility] [address] [place] [address] documented as of this encounter [...] Chronic allergic rhinitis Allergic rhinitis, cause unspecified Degenerative disc disease, lumbar Degeneration of lumbar or lumbosacral intervertebral disc Fibromyalgia Mylagia and myositis, unspecified documented in this encounter Care Teams Waiter/Waitress Tourist Class Relationship Specialty Start Date End Date Arlin Roman [place] [address] PCP - General Nurse Practitioner-Family 03/08/22 documented as of this encounter
--- OUTSIDE RECORDS SUMMARY | 2025-01-19 13:19 | XMS_ITS | Encounter Summary ---
Author Organization [place] [address] Care Team Providers Care Display Designer Name Role Phone Arlin Roman APRN Primary Care Provider Reason for Visit * Reason Onset Date Comments Medication Refill 01/11/2025 Encounter Details Date Type Department Care Team (Late st Contact Info) Description [facility] [place] [address] [facility] [address] [place] [id number] Robson Viveros MD [address] [facility] [address] [place] [address] Medication Refill Social History Tobacco [...] Spencer Purcell CCMA documented in this encounter Plan of Treatment Upcoming Encounters Date Type Department Care Team (Late st Contact Info) Description 04/21/2025 2:30 PM EDT Office Visit [facility] [address] [address] Javier Bhatia MD [address] [place] [address] [facility] [place] [address] 05/19/2025 9:50 AM EST Office Visit [facility] Diabetes [place] [address] [facility] [address] [place] [address] Robson Viveros MD [address] [facility] [address] [place] [address] documented as of this encounter [...] type documented in this encounter Care Teams Display Designer Relationship Specialty Start Date End Date Arlin Roman APRN [address] [place] [id number] PCP - General Nurse Practitioner-Family 03/08/22 documented as of this encounter
--- NOTE | 2025-01-19 13:34 | EXP.PAIN.SOA ---
[facility] Disclaimer: The information contained in this section may have been updated after the patient was seen, as this information can be updated by other users. Medical History Thyroid disease Diabetes mellitus, type 2 History of heart attack Hyperlipidemia Surgical History History of tonsillectomy History of hysterectomy History of cholecystectomy History of section Family History Other Unknown family medical history Social History Smoking Status: Never smoker alcohol intake: never substance use type: denies use current occupational status: other Travel in the last 8 weeks?: None household members: family housing: house PM Subjective & Objective Subjective Subjective:: Patient is a pleasant 49-year-old female who presents today for follow-up of her left SI and left bursa injection on 01/04/2025. Patient does state that it did take about 4 to 5 days for it to kick in however she had 100% relief the day of this procedure while it was nice and numb. Patient states that she was able to do more with overall improved function. She is rating now ongoing improvement of at least 60%. Patient does feel like the pain is much more manageable since having this injection. Patient does also state that the cream that we ordered has also been working well. She denies any side effects. She does state since having this injections done she did start noticing a little bit more upper low back pain only along the left side. Patient states it is tender. Her Adam has been reviewed and is appropriate. Review of Systems: General: No recent weight changes, no fever, no sleep disturbances Respiratory: No cough, no shortness of air, no recurring pulmonary infections Cardiovascular/peripheral vascular: No chest pain, no palpitations, no edema, no shortness of breath Gastrointestinal: No new onset incontinence, normal bowel movements reported Genitourinary: No new onset incontinence Musculoskeletal: Mid back pain left-sided Psychiatric: [Normal mood/affect] Neurological: [Denies weakness in extremities], [denies balance issues] Pain at rest (0-10 scale): 4 Objective Objective:: Physical Exam: General: Alert and oriented x3, no acute distress, pleasant and cooperative Lungs: Respirations even and unlabored, symmetrical chest expansion Eyes: PERRL Musculoskeletal: Flexion and extension of lumbar [spine] somewhat guarded secondary to pain, point tenderness on upper lumbar paraspinous muscles left-sided Neurological: Speech clear, no gross sensory deficit Has patient had previous pain injection?: Yes Percent improvement in pain since last injection: 100% Conservative treatment options previously tried: Home exercise plan Length of treatment: Longer than 12 weeks Meds Home Medications and Allergies Home Medications ?Medication ?Instructions ?Recorded ?Confirmed ?Type carvedilol 6.25 mg tablet 6.25 mg PO DAILY Heart disease 10/24/17 01/19/25 History furosemide 40 mg tablet 40 mg PO DAILY Fluid 10/24/17 01/19/25 History empagliflozin 10 mg tablet 10 mg PO DAILY 12/15/18 01/19/25 History (Jardiance) pantoprazole 40 mg tablet,delayed 40 mg PO BID 12/15/18 01/19/25 History release (Protonix) duloxetine 60 mg capsule,delayed 60 mg PO DAILY #30 caps 02/27/22 01/19/25 Rx release montelukast 10 mg tablet 10 mg PO DAILY #30 tabs 02/27/22 01/19/25 Rx levothyroxine 175 mcg tablet 175 mcg PO DAILY THYROID #30 tabs 03/01/22 01/19/25 Rx gabapentin 600 mg tablet 600 mg PO TID 03/06/22 01/19/25 History evolocumab 140 mg/mL subcutaneous 140 mg SQ WEEKLY 03/22/24 01/19/25 History pen injector (Dm Hernandez) losartan 25 mg tablet 25 mg PO DAILY 03/22/24 01/19/25 History nitrofurantoin 100 mg PO Q12H 7 days #14 caps 03/22/24 01/19/25 Rx monohydrate/macrocrystals 100 mg capsule (Macrobid) phenazopyridine 200 mg tablet 200 mg PO Q8H pain 2 days #6 tabs 03/22/24 01/19/25 Rx (Pyridium) semaglutide 2 mg/dose (8 mg/3 mL) 2 mg SQ WEEKLY 03/22/24 01/19/25 History subcutaneous pen injector (Ozempic) trazodone 50 mg tablet 50 mg PO DAILY 03/22/24 01/19/25 History New Prescriptions to Start Prescriptions: Allergies Allergy/AdvReac Type Severity Reaction Status Date / Time DYLAN Inhibitors Allergy Intermediate Nausea Verified 11/10/24 15:08 Sutures Allergy Rash Verified 11/10/24 15:08 [facility] AdvReac Intermediate Vomiting Verified 11/10/24 15:08 Assessment and Plan *Assessment and plan (1) Greater trochanteric bursitis of left hip: Status: Acute Category: Medical Code(s): M70.62 - Trochanteric bursitis, left hip (2) Sacroiliac joint dysfunction of left side: Status: Acute Category: Medical Code(s): M53.3 - Sacrococcygeal disorders, not elsewhere classified (3) Myofascial pain on left side: Status: Acute Category: Medical Code(s): M79.18 - Myalgia, other site Plan Patient did have limited range of motion of her lumbar spine with point tenderness along her upper left lumbar paraspinous/latissimus muscles. I did discuss with the patient that if this pain continues that we can definitely look about doing trigger point injections. Patient did get significant relief with her prior injections and does not require any additional injection therapy at this time. I have recommended that she try the compound cream on this higher low back pain along the left side. We will follow-up with her in 6 weeks. Patient has been instructed to contact the clinic with any concerns before the next appointment. Dr. Leahy has reviewed this note and agrees with this plan of care. This note was dictated using voice recognition software and make contain errors or omissions. All injections are used with Lidocaine, Bupivacaine and dexamethasone. Occasionally urine drug screen is needed to verify patient's compliance with our office pain contract. This is ordered based off specific treatments related to chronic pain with the potential to abuse certain medications.
== END 2025-01-19 23:59 | disposition home or self-care (01) ==
LOC: SC.PAIN 13:12
PROVIDERS: PCP Nurse Practitioner; Visit Provider Nurse Practitioner Family
DX: M70.62 Trochanteric bursitis, left hip (principal); M53.3 Sacrococcygeal disorders, not elsewhere classified; M79.18 Myalgia, other site
CPT/HCPCS: 99212; G0463